=== PATIENT | male | born 1960 | race Caucasian/White ===

== ENCOUNTER 2018-11-27 09:50 | Outpatient (CLI) | payer OTHER ==
--- NOTE | 2018-11-27 20:21 | EKG ---
Test Reason : Blood Pressure : / mmHG Vent. Rate : 080 BPM Atrial Rate : 214 BPM P-R Int : 000 ms QRS Dur : 110 ms QT Int : 398 ms P-R-T Axes : 104 -38 045 degrees QTc Int : 459 ms Atrial flutter with variable A-V block Left axis deviation Pulmonary disease pattern Inferior infarct (cited on or before 07-OCT-2016) Abnormal ECG When compared with ECG of 07-OCT-2016 19:08, Significant changes have occurred Confirmed by DIOGENES MOREL, . SJames ([id number]) on 11/27/2018 8:21:17 PM Referred By: MYLENE Confirmed By:DR. Junior SHETTY MD
== END 2018-11-27 09:51 | disposition home or self-care (01) ==
LOC: EKG 09:50
PROVIDERS: ATTEND Psychiatry & Neurology Neurology
DX: Z02.71 Encounter for disability determination (principal); I50.9 Heart failure, unspecified
CPT/HCPCS: 93005; 93010

== ENCOUNTER 2020-08-28 14:14 | Inpatient (IN) | payer OTHER, SELFPAY ==
[2020-08-28 15:03] LABS: #Basophils 0.1 thou/uL (0.0-0.2); #Eosinphils 0.5 thou/uL (0.0-0.7); #Lymphocytes 3.4 thou/uL (1.20-3.40); #Monocytes 0.7 thou/uL (0.11-0.59); #Neutrophils 10.8 thou/uL (1.40-6.50); %Basophils 0.8 % (0.0-1.0); %Eosinophils 3.1 % (0.0-10.0); %Lymphocytes 21.6 % (21.0-51.0); %Monocytes 4.6 % (0.0-10.0); %Neutrophils 69.8 % (42.0-75.0); Hemoglobin 17.4 g/dL (14.0-18.0); Mean Corpuscular HGB CONC 33.1 g/dL (32.0-36.0); Mean Corpuscular Hemoglobin 32.7 pg (27.0-31.0); Mean Corpuscular Volume 98.6 fL (78.0-98.0); Mean Platelet Volume 8.2 fL (7.4-10.4); Platelet Count 234 thou/uL (130-400); RBC Distribution Width 12.8 % (11.5-14.5); Red Blood Cell (RBC) Count 5.31 mill/uL (4.70-6.10); White Blood Cell (WBC) Count 15.5 thou/uL (4.8-10.8)
[2020-08-28] MEDS ORDERED: Lisinopril 10 MG TAB ONE (15:15)
[2020-08-28 15:36] LABS: ALT (SGPT) 16 U/L (8-55); AST (SGOT) 15 U/L (5-34); Alkaline Phosphatase 116 U/L (40-110); Anion Gap 14 mmol/L (10-20); BUN (Urea Nitrogen) 11 mg/dL (8.4-25.7); Bilirubin, Total 0.8 mg/dL (0.2-1.2); CK (CPK) 49 U/L (30-200); Calc. Creatinine Clearance 0 mL/min (70-130); Calcium 9.2 mg/dL (7.8-10.44); Carbon Dioxide 23 mmol/L (22-29); Chloride 101 mmol/L (98-107); Estimated GFR-MDRD 85; Globulin 3.5 g/dL (2.4-3.5); Glucose 145 mg/dL (70-105); Lipase 9 U/L (8-78); Potassium 4.8 mmol/L (3.5-5.1); Protein, Total 7.5 g/dL (6.0-8.3); Sodium 133 mmol/L (136-145)
[2020-08-28 15:57] LABS: CKMB 2.1 ng/mL (0-6.6)
--- NOTE | 2020-08-28 16:24 | RAD ---
XR Chest 1 View Portable History: Chest pain Comparison: Radiograph 2017 Findings: Heart size is markedly enlarged. Mild pulmonary venous congestion. No pneumothorax. Trace e ffusions. No acute osseous abnormality. Impression: Mild decompensated congestive heart failure.
[2020-08-28] MEDS ORDERED: Acetaminophen 325 MG TAB PO PRN (18:00)
[2020-08-28] MEDS ORDERED: Ondansetron ODT 4 MG TAB SL PRN (18:00)
[2020-08-28] MEDS ORDERED: Ondansetron PF 4 MG/2 ML Vial IVP PRN (18:00)
--- NOTE | 2020-08-28 18:08 | PDOC.HHP ---
Hospitalist HPI - History of Present Illness Dyspnea History of Present Illness: This is a 59-year-old male patient with a history of atrial fibrillation on apixaban, hypertension, osteoarthritis who presents with worsening shortness of breath and weakness for the past 3 to 4 days. He has a history of A. fib for which he is on anticoagulation and amiodarone and has been following up with Dr. Burroughs. He notes having fallen about 4 days ago while working and since then has had back pain which has progressively improved. However though he complains of worsening shortness of breath, easy fatigability with orthopnea and paroxysmal nocturnal dyspnea. He also has worsening swelling of his feet intermittently. He admits to some mild chest discomfort. Also has intermittent wheezing and weight gain and intermittent palpitation. Given worsening symptoms he presented today for further evaluation. ELDER done in 2016 prior to cardioversion for A. fib showed EF of 60 to 65%. Left atrium was dilated he has been on diltiazem, amiodarone and apixaban. 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 fib. At presentation his blood pressure was 153/73, heart rate 67, respiratory 20, saturation 94% on room air, he was afebrile. His labs showed WBC 15.5, hemoglobin 17.4 and platelets 234. Chemistry shows mild hyponatremia of 133, potassium 4.8 and troponin initially elevated at 0.033. Imaging was consistent with mild decompensated congestive heart failure. EKG showed atrial fibrillation. Hospitalist ROS - Review of Systems Constitutional: denies: fever, chills, weakness Respiratory: reports: cough, shortness of breath, SOB with excertion, pleuritic pain. denies: hemoptysis Cardiovascular: reports: chest pain, palpitations, orthopnea, paroxysmal noc. dyspnea, edema Gastrointestinal: denies: nausea, vomiting, abdominal pain Genitourinary: denies: dysuria, frequency, incontinence Neurological: denies: weakness, numbness, incoordination, change in speech - Medication Medications: Can refer to ambulatory Hospitalist History - Past Medical History Cardiac: reports: AFIB, HTN Musculoskeletal: reports: Osteoarthritis - Past Surgical History Other Surgical History: None of significance. - Family History Other Family History: None of significance - Social History Smoking Status: Current every day smoker Alcohol: reports: Occassional Living Situation: With Family - Exam General Appearance: awake alert General - other findings: In mild respiratory distress Eye: PERRL, anicteric sclera Heart: no murmur, no gallops, no rubs, normal peripheral pulses Respiratory - other findings: Bilateral basal crackles Extremities: no cyanosis, no clubbing, 1+ LE edema Neurological: cranial nerve grossly intact, normal sensation to touch, no weakness Musculoskeletal: normal tone, no muscle wasting Psychiatric: normal affect, normal behavior, A&O x 3 Hospitalist Results - Labs Result Diagrams: 08/28/20 14:46 08/28/20 14:46 Lab results: WBC 15.5 thou/uL (4.8-10.8) H 08/28/20 14:46 Hgb 17.4 g/dL (14.0-18.0) 08/28/20 14:46 Hct 52.4 % (42.0-52.0) H 08/28/20 14:46 MCV 98.6 fL (78.0-98.0) H 08/28/20 14:46 Plt Count 234 thou/uL (130-400) 08/28/20 14:46 Neutrophils % 69.8 % (42.0-75.0) 08/28/20 14:46 Sodium 133 mmol/L (136-145) L 08/28/20 14:46 Potassium 4.8 mmol/L (3.5-5.1) 08/28/20 14:46 Chloride 101 mmol/L (98-107) 08/28/20 14:46 Carbon Dioxide 23 mmol/L (22-29) 08/28/20 14:46 BUN 11 mg/dL (8.4-25.7) 08/28/20 14:46 Creatinine 0.91 mg/dL (0.7-1.3) 08/28/20 14:46 Glucose 145 mg/dL (70-105) H 08/28/20 14:46 Calcium 9.2 mg/dL (7.8-10.44) 08/28/20 14:46 Total Bilirubin 0.8 mg/dL (0.2-1.2) 08/28/20 14:46 AST 15 U/L (5-34) 08/28/20 14:46 ALT 16 U/L (8-55) 10/29/20 14:46 Alkaline Phosphatase 116 U/L (40-110) H 08/28/20 14:46 Creatine Kinase 49 U/L (30-200) 08/28/20 14:46 CK-MB (CK-2) 2.1 ng/mL (0-6.6) 08/28/20 14:46 Troponin I 0.033 ng/mL (< 0.028) H 08/28/20 14:46 Serum Total Protein 7.5 g/dL (6.0-8.3) 08/28/20 14:46 Albumin 4.0 g/dL (3.5-5.0) 08/28/20 14:46 Lipase 9 U/L (8-78) 08/28/20 14:46 Hospitalist H&P A/P - Plan Plan: This is a 59-year-old male patient with a history of A. fib on anticoagulation, hypertension and chronic osteoarthritis who presents with worsening shortness of breath palpitations for the past 3 days. He has been admitted from possible onset heart failure New onset acute heart failure Shortness of breath, orthopnea PND and pedal swelling in the setting of A. fib. Admit to telemetry Start IV Lasix Monitor electrolytes Daily weights Low-salt intake Echocardiogram in a.m. Consult cardiology. Atrial fibrillation Continue anticoagulation Also continue home amiodarone Discontinued diltiazem on account of ongoing heart failure To start beta-blockers once acute events observe Cardiology consult in a.m. Type II NSTEMI Troponin elevated at 0.033 Trend troponin Already anticoagulated Falls Unclear etiology possibly cardiac Orthostatic blood pressures Monitor on telemetry Echocardiogram Osteoarthritis of right knee. Try topical diclofenac Consider steroids if pain persists We will monitor for now. Leukocytosis Unclear etiology Repeat BMP in a.m. DVT prophylaxistherapeutic on apixaban CODE STATUSfull code [email or web address]
[2020-08-28] MEDS ORDERED: Electrolyte Replacement Protoc 1 EACH EACH FS SCH (18:15)
[2020-08-28] MEDS ORDERED: Electrolyte Replacement Protocol FS PRN (18:15)
[2020-08-28] MEDS ORDERED: Albuterol 200 PUFF (6.7GM INHALER) INH PRN (18:16)
[2020-08-28] MEDS ORDERED: Furosemide 40 MG/4 ML VIAL SLOW IVP SCH (19:00)
[2020-08-28 19:19] LABS: Troponin I 0.037 ng/mL (< 0.028)
[2020-08-28] MEDS: Albuterol 200 PUFF (6.7GM INHALER) INH SCH ×2 (19:43→22:37)
[2020-08-28] MEDS: Apixaban 5 MG TAB PO SCH (20:19)
[2020-08-28] MEDS: Amiodarone 200 MG TAB PO SCH (20:20)
[2020-08-28] MEDS: Nicotine 21 MG PATCH TD SCH (20:24)
[2020-08-28 21:50] LABS: Troponin I 0.023 ng/mL (< 0.028)
[2020-08-28 21:58] VITALS: BMI 43.0
[2020-08-29] MEDS: Albuterol 200 PUFF (6.7GM INHALER) INH SCH ×5 (01:39→19:56)
[2020-08-29 04:36] LABS: #Basophils 0.1 thou/uL (0.0-0.2); #Eosinphils 0.4 thou/uL (0.0-0.7); #Neutrophils 9.2 thou/uL (1.40-6.50); %Basophils 0.6 % (0.0-1.0); %Eosinophils 3.1 % (0.0-10.0); %Lymphocytes 21.8 % (21.0-51.0); %Monocytes 7.1 % (0.0-10.0); %Neutrophils 67.4 % (42.0-75.0); Hemoglobin 16.4 g/dL (14.0-18.0); Mean Corpuscular HGB CONC 33.7 g/dL (32.0-36.0); Mean Corpuscular Hemoglobin 33.1 pg (27.0-31.0); Mean Corpuscular Volume 98.2 fL (78.0-98.0); Platelet Count 198 thou/uL (130-400); RBC Distribution Width 12.6 % (11.5-14.5); Red Blood Cell (RBC) Count 4.96 mill/uL (4.70-6.10); White Blood Cell (WBC) Count 13.6 thou/uL (4.8-10.8)
[2020-08-29 04:58] LABS: ALT (SGPT) 16 U/L (8-55); AST (SGOT) 12 U/L (5-34); Albumin 3.6 g/dL (3.5-5.0); Alkaline Phosphatase 108 U/L (40-110); Anion Gap 11 mmol/L (10-20); BUN (Urea Nitrogen) 13 mg/dL (8.4-25.7); Bilirubin, Total 0.7 mg/dL (0.2-1.2); Calc. Creatinine Clearance 165 mL/min (70-130); Calcium 9.2 mg/dL (7.8-10.44); Carbon Dioxide 28 mmol/L (22-29); Chloride 101 mmol/L (98-107); Estimated GFR-MDRD 79; Globulin 3.4 g/dL (2.4-3.5); Glucose 101 mg/dL (70-105); Potassium 3.9 mmol/L (3.5-5.1); Sodium 136 mmol/L (136-145)
[2020-08-29] MEDS ORDERED: Enoxaparin Sodium 40 MG/0.4 ML SYRINGE SC SCH (09:00)
[2020-08-29] MEDS ORDERED: Nicotine 21 MG PATCH TD SCH (09:00)
[2020-08-29] MEDS: Furosemide 40 MG/4 ML VIAL SLOW IVP SCH (09:49)
[2020-08-29] MEDS: Aspirin 81 mg Enteric Coated Tablet PO SCH (09:49)
[2020-08-29] MEDS: Amiodarone 200 MG TAB PO SCH (09:54)
[2020-08-29] MEDS: Apixaban 5 MG TAB PO SCH ×2 (09:55→20:04)
[2020-08-29] MEDS ORDERED: Magnesium 2 GM/50 ML 2 GM in Premix Bag 1 BAG IVPB SCH (10:15)
--- NOTE | 2020-08-29 10:57 | CON ---
DATE OF CONSULTATION: HISTORY OF PRESENT ILLNESS: The patient is a 59-year-old gentleman with a long history of atrial fibrillation, who presents for evaluation of dyspnea. The patient has was seen in 2016, he underwent electrocardioversion. The patient was treated with amiodarone for several years.He was taken off this medication a year ago. The patient states he subsequently has had several syncopal episodes where he suddenly loses consciousness. The patient four days ago had an episode once again where he felt palpitations and suddenly lost consciousness. The patient has subsequently noted that he has had increased dyspnea at night. The patient reports that it was often associated with rapid palpitations. The patient denies having any PND or orthopnea. PAST MEDICAL HISTORY: 1. Atrial fibrillation. 2. Diastolic heart failure. 3. COPD. 4. Osteoarthritis. PAST SURGICAL HISTORY: None. SOCIAL HISTORY: Long history of tobacco abuse, recently quit a few weeks ago. FAMILY HISTORY: Positive family history of coronary artery disease. ALLERGIES: NO KNOWN DRUG ALLERGIES. MEDICATIONS: On admission, include: 1. Metoprolol 50 b.i.d. 2. Eliquis 5 b.i.d. 3. Aspirin 81 daily. 4. Lisinopril 20 daily. 5. Diltiazem 180 daily. REVIEW OF SYSTEMS: Ten-point system otherwise unremarkable. No easy bruising or bleeding. ALLERGIES: NO KNOWN DRUG ALLERGIES. PHYSICAL EXAMINATION: GENERAL: Morbidly obese gentleman, in no acute distress. VITAL SIGNS: Blood pressure 140/65. NECK: No jugular venous distention. LUNGS: Clear to auscultation. HEART: Irregular rate and rhythm. Normal S1, S2. No murmurs. ABDOMEN: Distended. EXTREMITIES: Show mild bilateral edema. VASCULAR: Radial pulses 2+. LABORATORY DATA: Sodium 136, potassium 3.9, chloride 101, bicarbonate 28, BUN 13, creatinine 0.97, and glucose 101. White blood cell count 13.6,hematocrit 48.7, and platelets were 198. EKG atrial fibrillation with Q-wave, suggestive of possible previous inferior infarct. IMPRESSION: 1. Atrial fibrillation, flutter. 2. Syncope. 3. Congestive heart failure, probably secondary to diastolic dysfunction. 4. Morbid obesity. 5. History of hypertriglyceridemia. 6. Tobacco abuse. This gentleman presents with a syncopal episode and rapid atrial fibrillation. We will obtain an EP consultation and would try to avoid amiodarone with the patient's young age. We will ask EP for further medical recommendation. We will check the patient's echocardiogram. We will follow this patient with you through his hospitalization. Job ID: [id number] SHARAD
[2020-08-29] MEDS ORDERED: Lidocaine 1% w/Epinephrine 1:100K 20 ML VIAL ONE (11:46)
--- NOTE | 2020-08-29 13:09 | OP ---
DATE OF PROCEDURE: 08/29/2020 PROCEDURE PERFORMED: Loop recorder implantation. REASON FOR PROCEDURE: 1. Recurrent syncope. 2. Persisting atrial fibrillation. DESCRIPTION OF PROCEDURE: The patient received no sedation. The left precordial area was prepped, draped, and anesthetized using subcutaneous lidocaine, and at 4th intercostal space area, incision was made with a [employer] standard tool kit. The [employer] LINQ recorder was inserted. The wound was closed with Dermabond. The patient tolerated the procedure well. No complications noted. CONCLUSION: Successful LINQ recorder placement. PLAN: Continue monitoring for recurrent syncope or arrhythmias. Job ID: [id number]
[2020-08-29 17:48] LABS: SARS-CoV-2 MS2 Positive; SARS-CoV-2 N Gene Negative; SARS-CoV-2 S Gene Negative; SARS-CoV-2 by NAA Not Detected (NotDetected); SARS-CoV-2 orf1ab Negative
[2020-08-29] MEDS: Nicotine 21 MG PATCH TD SCH (20:04)
--- NOTE | 2020-08-29 22:37 | PDOC.HOSPP ---
- Subjective Encounter Date: 08/29/20 Encounter Time: 10:00 Subjective: Patient was seen and examined in bed. He had diuresed overnight feels much better today. Shortness of breath improved. She denies any chest pain - Objective Vital Signs & Weight: Vital Signs (12 hours) Temp Pulse Resp BP Pulse Ox 08/29/20 19:10 97.9 F 97 18 151/67 H 94 L 08/29/20 15:23 98.3 F 85 16 154/67 H 96 08/29/20 11:25 98 F 88 18 140/92 H 92 L Weight Weight 317 lb 6 oz I&O: 08/28/20 08/29/20 08/30/20 06:59 06:59 06:59 Intake Total 1490 Output Total 3100 Balance -1610 Result Diagrams: 08/29/20 04:16 08/29/20 04:16 Hospitalist ROS - Medication Medications: Active Medications Generic Name Dose Route Start Last Admin Trade Name Freq PRN Reason Stop Dose Admin Albuterol Sulfate 2 puff 08/28/20 18:30 08/29/20 19:56 Albuterol 200 Puff (6.7gm Inhaler) INH 2 puff [id number] CARLO Administration Apixaban 5 mg 08/28/20 21:00 08/29/20 20:04 Apixaban 5 Mg Tab PO 5 mg BID CARLO Administration Aspirin 81 mg 08/29/20 09:00 08/29/20 09:49 Aspirin 81 Mg Enteric Coated Tablet PO 81 mg DAILY CARLO Administration Diltiazem HCl 180 mg 08/29/20 21:00 08/29/20 20:04 Diltiazem Hcl Cd 180 Mg Capsule PO 180 mg HS CARLO Administration Furosemide 40 mg 08/29/20 09:00 08/29/20 09:49 Furosemide 40 Mg/4 Ml Vial SLOW IVP 40 mg DAILY CARLO Administration Nicotine 21 mg 08/28/20 21:00 08/29/20 20:04 Nicotine 21 Mg Patch TD 21 mg HS CARLO Administration - Exam General Appearance: awake alert Eye: PERRL, anicteric sclera Heart: RRR, no murmur, no gallops, no rubs Respiratory: no wheezes, no rales, no ronchi Gastrointestinal: soft, non-tender, non-distended, normal bowel sounds Extremities: no cyanosis, no clubbing, no edema Neurological: cranial nerve grossly intact, no weakness Psychiatric: normal affect, A&O x 3 Hosp A/P - Plan 59-year-old male patient with a history of A. fib admitted on account of new onset heart failure of unclear etiology. Cardiology was consulted later if his consultation in loop recorder implantation today. New onset acute heart failure Cardiology evaluated today Electrophysiology evaluation as well with loop recorder implantation Echo could not evaluate adequately EF Continue diuresis Monitor electrolytes and weight Appreciate cardiology input Atrial fibrillation Rate controlled on diltiazem Continue apixaban Amiodarone currently discontinued Continue monitoring on telemetry Type II NSTEMI Troponin remains flat. Continue monitor Falls Unclear etiology possibly cardiac Orthostatic blood pressures Monitor on telemetry Echocardiogram Osteoarthritis of right knee. Try topical diclofenac Consider steroids if pain persists We will monitor for now. Leukocytosis Unclear etiology This is resolvingwe will continue monitoring. DVT prophylaxistherapeutic on apixaban CODE STATUSfull code [email or web address]
[2020-08-30] MEDS: Albuterol 200 PUFF (6.7GM INHALER) INH SCH ×7 (03:50→22:15)
[2020-08-30 04:57] LABS: #Basophils 0.1 thou/uL (0.0-0.2); #Eosinphils 0.5 thou/uL (0.0-0.7); #Lymphocytes 2.8 thou/uL (1.20-3.40); #Monocytes 0.9 thou/uL (0.11-0.59); #Neutrophils 6.8 thou/uL (1.40-6.50); %Basophils 0.7 % (0.0-1.0); %Eosinophils 4.4 % (0.0-10.0); %Lymphocytes 25.2 % (21.0-51.0); %Monocytes 7.8 % (0.0-10.0); Hemoglobin 16.2 g/dL (14.0-18.0); Mean Corpuscular HGB CONC 32.7 g/dL (32.0-36.0); Mean Corpuscular Hemoglobin 31.9 pg (27.0-31.0); Mean Corpuscular Volume 97.6 fL (78.0-98.0); Platelet Count 177 thou/uL (130-400); RBC Distribution Width 12.6 % (11.5-14.5); Red Blood Cell (RBC) Count 5.07 mill/uL (4.70-6.10)
[2020-08-30 05:19] LABS: Anion Gap 12 mmol/L (10-20); BUN (Urea Nitrogen) 15 mg/dL (8.4-25.7); Calc. Creatinine Clearance 154 mL/min (70-130); Carbon Dioxide 30 mmol/L (22-29); Chloride 99 mmol/L (98-107); Estimated GFR-MDRD 73; Glucose 90 mg/dL (70-105); Potassium 4.3 mmol/L (3.5-5.1); Sodium 137 mmol/L (136-145)
--- NOTE | 2020-08-30 07:26 | CON ---
DATE OF CONSULTATION: 08/29/2020 ADDITIONAL REFERRING PHYSICIAN: Also regular life sciences manager, Dr. Beau Higuera. HISTORY OF PRESENT ILLNESS: I am seeing Mr. Perera at our [facility] as an Electrophysiology medical economics consultant. His problems are; 1. Persisting atrial fibrillation. a. History of ELDER-guided cardioversion in 2016 and subsequent amiodarone therapy. b. Recurrent atrial flutter about a year ago prompting discontinuation of amiodarone. c. Current admission with a diastolic heart failure and atrial fibrillation with rapid ventricular rates. 2. CHADS-VASc score, diastolic heart failure and hypertension at 2 on Eliquis for oral anticoagulation. 3. History of COPD. 4. Obesity. ALLERGIES: NONE NOTED. MEDICATIONS: At home include; 1. Eliquis 5 mg twice a day. 2. Aspirin 81 mg daily. 3. Tramadol. 4. Lisinopril 20 mg daily. 5. Metoprolol tartrate 50 mg twice a day. 6. Diltiazem CD 180 mg daily. SUBJECTIVE: Mr. Perera was admitted overnight with dyspnea. He has noted progressive palpitations and for the last 3 to 4 days, he has some increased fatigability and also orthopnea and PND. He was not able to sleep the night. Admits of atypical chest pain, intermittent wheezing, and weight gain has been noted. In the ER, he was diagnosed with new onset of heart failure. His troponin levels were slightly elevated. Dr. Wood has evaluated the patient and I was consulted for further atrial fibrillation management. Currently, the patient is asymptomatic. Denies PND or orthopnea. No lower extremity edema. No fever, chills, or cough. He is being diuresed. REVIEW OF SYSTEMS: Rest of 12-point system, otherwise unremarkable. PAST MEDICAL HISTORY: As above. The patient had recurrent syncopal spells, last has happened about four days ago, but happens intermittently at least two or three times a year. The episode happened while he is walking and mostly happens when he is upright. He had never noticed lower blood pressures associated with this. SOCIAL HISTORY: The patient has an occasional use of alcohol and smokes daily. Denies drug use. FAMILY HISTORY: Not contributory. OBJECTIVE DATA: VITAL SIGNS: Blood pressure 140/92, heart rate 88, respirations 18, and temperature 98 degrees Fahrenheit. GENERAL: Alert and oriented man, with markedly elevated BMI, in no apparent distress and his weight is 317 pounds. NECK: Supple. Jugular veins difficult to visualize. CHEST: Coarse. No crackles. HEART: Sounds are irregularly irregular. S1 and S2 are variable. I do not hear murmur or gallop. ABDOMEN: Benign. Bowel sounds positive. EXTREMITIES: Lower extremities without edema, clubbing, or cyanosis. NEUROLOGIC: The patient is nonfocal. MUSCULOSKELETAL: Without joint swelling or deformity. SKIN: Without rash. DATABASE: EKG is reviewed, revealing atrial fibrillation, rates of 60 beats per minute, narrow QRS is seen. LABORATORY DATA: White cell count is 13.6, hemoglobin 16.4, and platelet count is 198. Sodium 136, potassium 3.9, BUN is 13, and creatinine 0.97. Troponin I 0.033, 0.037, and 0.023 consecutively. Initial BNP is 310. The chest x-ray from 08/28/2020 reveals mild decompensated CHF. Telemetry strips revealed just continued atrial fibrillation now with improving ventricular rate control. ASSESSMENT AND PLAN: 1. Mr. Perera is a 59-year-old man with prior history of atrial fibrillation at least for four years, who has been suppressed with amiodarone over number of years with more recently due to inefficacy that drug was stopped about a year ago. Now, he is presenting with progressive dyspnea and possible diastolic heart failure exacerbation. He is responding to diuretics, currently feeling better. Atrial fibrillation continues now with improving ventricular rate control. a. He also has syncopal spells, which so far are unexplained. The episodes are relatively infrequent, but one happened about four days ago. Blood pressure related syncope, but more likely arrhythmic syncope are very much a possibility. He might have benefit from further monitoring. b. We discussed these issues with him. During his syncope, I think a LINQ recorder placement would be warranted. This could monitor his relatively infrequent syncopes to rule out arrhythmic causes. Tachy and bradyarrhythmias are a possibility. Most likely due to atrial fibrillation, although lower chamber arrhythmias are less likely hence his preserved LVEF. 2. Atrial fibrillation. We discussed potential management options. He already failed amiodarone. At this point, could be considered for ablation therapy. He is well anticoagulated. I explained the procedure to him and we will make arrangements for it. See him back in the office for outpatient arrangements for possible ablation in future. 3. Morbid obesity. Weight loss is recommended. 4. History of chronic obstructive pulmonary disease and smoking. Smoking cessation recommended. 5. CHADS-VASc score of 2. Continue oral anticoagulation with Eliquis. No bleeding issues. Thank you for allowing me to participate in care of this patient. Job ID: [id number]
[2020-08-30] MEDS: Apixaban 5 MG TAB PO SCH ×2 (09:50→20:39)
[2020-08-30] MEDS: Furosemide 40 MG/4 ML VIAL SLOW IVP SCH (09:50)
[2020-08-30] MEDS: Aspirin 81 mg Enteric Coated Tablet PO SCH (09:50)
[2020-08-30] MEDS: Lisinopril 10 MG TAB PO SCH (09:50)
--- NOTE | 2020-08-30 14:05 | PDOC.HOSPP ---
- Subjective Encounter Date: 08/30/20 Encounter Time: 09:00 Subjective: Patient seen in follow-up for congestive heart failure. Reports feeling better. - Objective Vital Signs & Weight: Vital Signs (12 hours) Temp Pulse Resp BP BP Pulse Ox 08/30/20 11:10 97.5 F L 87 20 142/64 H 97 08/30/20 07:50 97.3 F L 77 17 139/63 94 L 08/30/20 04:39 97.4 F L 84 18 142/67 H 94 L Weight Weight 308 lb 8 oz I&O: 08/29/20 08/30/20 08/31/20 06:59 06:59 05:59 Intake Total 1490 240 Output Total 3100 1925 Balance -1610 -1685 Result Diagrams: 08/30/20 04:31 08/30/20 04:31 Additional Labs: Labs and MAR reviewed by me EKG Reviewed by me: Yes (Telemetry: Atrial fibrillation) Hospitalist ROS - Review of Systems Cardiovascular: denies: chest pain, palpitations, orthopnea, paroxysmal noc. dyspnea, edema, light headedness Gastrointestinal: denies: nausea, vomiting, abdominal pain, diarrhea, constipation, melena, hematochezia - Medication Medications: Active Medications Generic Name Dose Route Start Last Admin Trade Name Freq PRN Reason Stop Dose Admin Albuterol Sulfate 2 puff 08/28/20 18:30 08/30/20 11:20 Albuterol 200 Puff (6.7gm Inhaler) INH Not Given [id number] CARLO Apixaban 5 mg 08/28/20 21:00 08/30/20 09:50 Apixaban 5 Mg Tab PO 5 mg BID CARLO Administration Aspirin 81 mg 08/29/20 09:00 08/30/20 09:50 Aspirin 81 Mg Enteric Coated Tablet PO 81 mg DAILY CARLO Administration Diltiazem HCl 180 mg 08/29/20 21:00 08/29/20 20:04 Diltiazem Hcl Cd 180 Mg Capsule PO 180 mg HS CARLO Administration Furosemide 40 mg 08/29/20 09:00 08/30/20 09:50 Furosemide 40 Mg/4 Ml Vial SLOW IVP 40 mg DAILY CARLO Administration Lisinopril 10 mg 08/30/20 09:00 08/30/20 09:50 Lisinopril 10 Mg Tab PO 10 mg DAILY CARLO Administration Nicotine 21 mg 08/28/20 21:00 08/29/20 20:04 Nicotine 21 Mg Patch TD 21 mg HS CARLO Administration - Exam General - other findings: Morbid obesity Eye: anicteric sclera ENT: normocephalic atraumatic Neck: supple Heart: irregular Respiratory: CTAB Gastrointestinal: soft Extremities: no cyanosis Skin: no rashes Psychiatric: normal affect, normal behavior Hosp A/P - Plan -Assessment/plan New onset acute heart failure Continue IV furosemide. Monitor electrolytes and weight Cardiology service following. Atrial fibrillation Rate controlled on diltiazem Patient is also on apixaban Type II NSTEMI Stable, continue to monitor. Falls Etiology is unclear, continue to monitor on telemetry. Osteoarthritis of right knee. Stable Leukocytosis Improved.
[2020-08-30] MEDS: Nicotine 21 MG PATCH TD SCH (20:39)
[2020-08-31] MEDS: Albuterol 200 PUFF (6.7GM INHALER) INH SCH ×6 (02:06→23:11)
[2020-08-31] MEDS: Apixaban 5 MG TAB PO SCH ×2 (08:44→21:14)
[2020-08-31] MEDS: Aspirin 81 mg Enteric Coated Tablet PO SCH (08:44)
[2020-08-31] MEDS: Lisinopril 10 MG TAB PO SCH (08:44)
[2020-08-31] MEDS: Furosemide 40 MG/4 ML VIAL SLOW IVP SCH (08:44)
[2020-08-31] MEDS ORDERED: Digoxin 0.5 MG/2 ML AMP SLOW IVP SCH ×2 (10:15→12:00)
--- NOTE | 2020-08-31 17:40 | PDOC.HOSPP ---
- Subjective Encounter Date: 08/31/20 Encounter Time: 12:00 Subjective: Patient seen for follow-up regarding congestive heart failure exacerbation. He denies fevers or chills. - Objective Vital Signs & Weight: Vital Signs (12 hours) Temp Pulse Pulse Pulse Resp BP BP 08/31/20 15:35 98.3 F 100 16 08/31/20 15:26 133 H 106 H 197/80 H 167/73 H 08/31/20 12:08 97 08/31/20 12:05 97.8 F 104 H 18 08/31/20 10:35 97 08/31/20 07:15 97.3 F L 97 16 BP BP Pulse Ox Pulse Ox Pulse Ox 08/31/20 15:35 153/72 H 96 08/31/20 15:26 94 L 94 L 08/31/20 12:08 08/31/20 12:05 134/63 96 08/31/20 10:35 08/31/20 07:15 149/70 H 96 Weight Weight 311 lb I&O: 08/30/20 08/31/20 09/01/20 07:59 06:59 06:59 Intake Total Output Total Balance Result Diagrams: 08/30/20 04:31 08/30/20 04:31 Additional Labs: I reviewed patient's labs and MAR EKG Reviewed by me: Yes (Telemetry: Atrial fibrillation) Hospitalist ROS - Review of Systems Cardiovascular: denies: chest pain, palpitations, orthopnea, paroxysmal noc. dyspnea, edema, light headedness Gastrointestinal: denies: nausea, vomiting, abdominal pain, diarrhea, constipation, melena, hematochezia - Medication Medications: Active Medications Generic Name Dose Route Start Last Admin Trade Name Freq PRN Reason Stop Dose Admin Albuterol Sulfate 2 puff 08/28/20 18:30 08/31/20 14:36 Albuterol 200 Puff (6.7gm Inhaler) INH Not Given [id number] CARLO Apixaban 5 mg 08/28/20 21:00 08/31/20 08:44 Apixaban 5 Mg Tab PO 5 mg BID CARLO Administration Aspirin 81 mg 08/29/20 09:00 08/31/20 08:44 Aspirin 81 Mg Enteric Coated Tablet PO 81 mg DAILY CARLO Administration Diltiazem HCl 180 mg 08/29/20 21:00 08/30/20 20:39 Diltiazem Hcl Cd 180 Mg Capsule PO 180 mg HS CARLO Administration Furosemide 40 mg 08/29/20 09:00 08/31/20 08:44 Furosemide 40 Mg/4 Ml Vial SLOW IVP 40 mg DAILY CARLO Administration Lisinopril 10 mg 08/30/20 09:00 08/31/20 08:44 Lisinopril 10 Mg Tab PO 10 mg DAILY CARLO Administration Nicotine 21 mg 08/28/20 21:00 08/30/20 20:39 Nicotine 21 Mg Patch TD 21 mg HS CARLO Administration - Exam General Appearance: awake alert Eye: anicteric sclera ENT: moist mucosa Neck: supple Heart: irregular Respiratory: CTAB Gastrointestinal: soft, non-tender Skin: no rashes Psychiatric: normal affect, normal behavior Hosp A/P - Plan -Assessment/plan New onset acute heart failure Continue IV furosemide. Patient is clinically improving. Atrial fibrillation Patient had episode of atrial fibrillation with rapid ventricular response today, received digoxin with improvement in heart rate. Continue diltiazem Continue apixaban Type II NSTEMI Stable, continue to monitor. Falls Etiology is unclear, continue to monitor on telemetry. Osteoarthritis of right knee. Stable Leukocytosis Improved.
[2020-08-31] MEDS: Nicotine 21 MG PATCH TD SCH (21:13)
[2020-09-01] MEDS: Albuterol 200 PUFF (6.7GM INHALER) INH SCH ×6 (04:11→22:58)
[2020-09-01] MEDS: Digoxin 0.25 MG TAB PO SCH (09:33)
[2020-09-01] MEDS: Apixaban 5 MG TAB PO SCH ×2 (09:33→22:55)
[2020-09-01] MEDS: Furosemide 40 MG/4 ML VIAL SLOW IVP SCH (09:33)
[2020-09-01] MEDS: Aspirin 81 mg Enteric Coated Tablet PO SCH (09:33)
[2020-09-01] MEDS: Lisinopril 10 MG TAB PO SCH (09:33)
--- NOTE | 2020-09-01 15:21 | ULT ---
Exam: Left lower extremity venous ultrasound with Doppler HISTORY: Left upper extremity swelling. COMPARISON: none TECHNIQUE: A sterile, color flow, Doppler imaging and spectral wave muscle the left upper extremity v enous system FINDINGS: There is patency in the internal jugular vein There is patency of the subclavian vein Compressibility and flow in the axillary vein, brachial vein. There is flow in the ulnar vein, basili c vein and radial vein. There is thrombus formation in the cephalic vein at the level of the antecubital fossa. IMPRESSION: Thrombus involving the cephalic vein at the antecubital fossa.
--- NOTE | 2020-09-01 16:01 | PDOC.EP ---
- Subjective Date: 09/01/20 Time: 15:59 Interval History: Follow up for atrial fibrillation. He has symptomatic palpitations with any activity despite increasing rate control. No symptoms at rest. - Review of Systems Constitutional: denies: chills, fever, malaise, sweats, weakness Respiratory: reports: shortness of breath. denies: cough, pleuritic pain, sputum, wheezing Cardiology: reports: heart racing, palpitations. denies: chest pain, edema, light headedness, passing out Gastrointestinal: denies: abdominal pain, constipation, nausea, vomitting Musculoskeletal: denies: unstable gait, falls, leg pain, foot pain - Objective Allergies/Adverse Reactions: Allergies Allergy/AdvReac Type Severity Reaction Status Date / Time No Known Drug Allergies Allergy Verified 08/28/20 22:05 Current Medications Albuterol Sulfate (Albuterol 200 Puff (6.7gm Inhaler)) 2 puff INH [id number] [facility] Last Admin: 09/01/20 14:53 Dose: Not Given Documented by: Albuterol Sulfate (Albuterol 200 Puff (6.7gm Inhaler)) 2 puff INH Q4H PRN PRN Reason: SOB &/or Wheezing Apixaban (Apixaban 5 Mg Tab) 5 mg PO BID [facility] Last Admin: 09/01/20 09:33 Dose: 5 mg Documented by: Aspirin (Aspirin 81 Mg Enteric Coated Tablet) 81 mg PO DAILY [facility] Last Admin: 09/01/20 09:33 Dose: 81 mg Documented by: Digoxin (Digoxin 0.25 Mg Tab) 0.25 mg PO QAM [facility] Last Admin: 09/01/20 09:33 Dose: 0.25 mg Documented by: Diltiazem HCl (Diltiazem Hcl Cd 180 Mg Capsule) 180 mg PO BID [facility] Furosemide (Furosemide 40 Mg/4 Ml Vial) 40 mg SLOW IVP DAILY [facility] Last Admin: 09/01/20 09:33 Dose: 40 mg Documented by: Lisinopril (Lisinopril 10 Mg Tab) 10 mg PO DAILY [facility] Last Admin: 09/01/20 09:33 Dose: 10 mg Documented by: Miscellaneous Medication (Electrolyte Replacement Protocol) 0 each FS ASDIR PRN; Protocol PRN Reason: ELECTROLYTE REPLACEMENT Nicotine (Nicotine 21 Mg Patch) 21 mg TD HS [facility] Last Admin: 08/31/20 21:13 Dose: 21 mg Documented by: Vital Signs & Weight: Vital Signs Temp Pulse Resp BP Pulse Ox 09/01/20 11:30 97.9 F 108 H 18 136/65 94 L 09/01/20 09:33 107 H 09/01/20 08:00 96 09/01/20 07:25 97.5 F L 107 H 16 145/66 H 96 09/01/20 04:17 97.5 F L 108 H 20 142/65 H 95 Weight 305 lb 5 oz I/O: I/O 08/31/20 09/01/20 09/02/20 06:59 06:59 06:59 Intake Total 1350 Output Total 1475 Balance -125 - Quality Measures CV meds: Eliquis: Yes - Physical Exam General: alert & oriented x3, appears well, no apparent distress, speech clear, affect appropriate HEENT: mucus membranes moist, normocephaly Neck: supple neck, midline trachea, no JVD/HJR, no masses, no bruit, no lymphadenopathy, no thromegaly Cardiology: irregularly irregular, tachycardia Lungs: clear to auscultation, no wheeze, rales, rhonchi, decreased breath sounds Neurology: cranial nerve 2-12 intact, grossly intact, no lateralizing findings Abdomen: unremarkable, active bowel sounds, no pulsations/bruits Extremities: dry, strong pulses, warm - Chadsvasc Risk factors Congestive heart failure: 1 Hypertension: 1 Risk Score: 2 - Labs Result Diagrams: 08/30/20 04:31 08/30/20 04:31 - EKG Interpretation EKG Method: Telemetry EKG shows: Atrial fibrillation - Assessment/Plan Assessment/Plan: 1. Persisting atrial fibrillation. a. History of ELDER-guided cardioversion in 2016 and subsequent amiodarone therapy. b. Recurrent atrial flutter about a year ago prompting discontinuation of amiodarone. c. Current admission with a diastolic heart failure and atrial fibrillation with rapid ventricular rates. 2. CHADS-VASc score,2 diastolic heart failure and hypertension on Eliquis for oral anticoagulation. 3. History of COPD. 4. Obesity. Rate control is adequate at rest but RVR of 150-180bpm occurs with any activity and he is symptomatic. RVR persists despite increasing doses rate control. Discussed ablation option to manage his persistent AFib, previously refractory to amiodarone. He is aware of the risk for bleeding, stroke, atrio-esophageal fistula, tamponade/ effusion, and arrhythmia recurrence, and wishes to proceed this hospitalization, schedule permitting. He reports no missed doses of eliquis for the past 30 days. Lifestyle modification is necessary to help the chances of maintaining SR: weight loss, managing HTN, and sleep study/cpap if indicated. He is high risk for ENRIQUE and should have an outpatient sleep study. Continue rate control and eliquis. Plan to hold eliquis Tuesday AM before PVAI
[2020-09-01] MEDS: Acetaminophen 650 MG/20.3 ML UDCUP PO PRN (18:11)
--- NOTE | 2020-09-01 18:50 | PDOC.HOSPP ---
- Subjective Encounter Date: 09/01/20 Encounter Time: 12:00 Subjective: Patient seen for follow-up regarding congestive heart failure exacerbation. He reports feeling better. He reports left arm swelling. - Objective Vital Signs & Weight: Vital Signs (12 hours) Temp Pulse Resp BP Pulse Ox 09/01/20 15:45 97.8 F 101 H 16 140/65 96 09/01/20 11:30 97.9 F 108 H 18 136/65 94 L 09/01/20 09:33 107 H 09/01/20 08:00 96 09/01/20 07:25 97.5 F L 107 H 16 145/66 H 96 Weight Weight 305 lb 5 oz I&O: 08/31/20 09/01/20 09/02/20 06:59 06:59 06:59 Intake Total 1350 Output Total 1475 Balance -125 Result Diagrams: 08/30/20 04:31 08/30/20 04:31 Additional Labs: Labs and MAR reviewed by me EKG Reviewed by me: Yes (Telemetry: A. fib with RVR) Hospitalist ROS - Review of Systems Cardiovascular: denies: chest pain, palpitations, orthopnea, paroxysmal noc. dyspnea, edema, light headedness Gastrointestinal: denies: nausea, vomiting, abdominal pain, diarrhea, constipation, melena, hematochezia Musculoskeletal: reports: other (Left arm swelling) - Medication Medications: Active Medications Generic Name Dose Route Start Last Admin Trade Name Freq PRN Reason Stop Dose Admin Acetaminophen 650 mg 09/01/20 17:37 09/01/20 18:11 Acetaminophen 650 Mg/20.3 Ml Udcup PO 650 mg Q6H PRN Administration pain Albuterol Sulfate 2 puff 08/28/20 18:30 09/01/20 18:12 Albuterol 200 Puff (6.7gm Inhaler) INH Not Given [id number] CARLO Apixaban 5 mg 08/28/20 21:00 09/01/20 09:33 Apixaban 5 Mg Tab PO 5 mg BID [facility] Administration Aspirin 81 mg 08/29/20 09:00 09/01/20 09:33 Aspirin 81 Mg Enteric Coated Tablet PO 81 mg DAILY [facility] Administration Digoxin 0.25 mg 09/01/20 09:00 09/01/20 09:33 Digoxin 0.25 Mg Tab PO 0.25 mg QAM [facility] Administration Furosemide 40 mg 08/29/20 09:00 09/01/20 09:33 Furosemide 40 Mg/4 Ml Vial SLOW IVP 40 mg DAILY [facility] Administration Lisinopril 10 mg 08/30/20 09:00 09/01/20 09:33 Lisinopril 10 Mg Tab PO 10 mg DAILY [facility] Administration Nicotine 21 mg 08/28/20 21:00 08/31/20 21:13 Nicotine 21 Mg Patch TD 21 mg HS [facility]LO Administration - Exam General - other findings: Morbid obesity Eye: anicteric sclera ENT: no oropharyngeal lesions Neck: supple Heart: no rubs, irregular Respiratory: CTAB Gastrointestinal: soft, non-tender Extremities - other findings: Left arm swelling Skin: no rashes Psychiatric: normal affect, normal behavior Hosp A/P - Plan -Assessment/plan New onset acute heart failure Niccoli improving with IV furosemide. Atrial fibrillation Continue diltiazem, apixaban and digoxin Type II NSTEMI Stable, continue to monitor. Falls Cardiac rehab following. Osteoarthritis of right knee. Stable -Morbid obesity Stable. Check a.m. labs..
[2020-09-01] MEDS: Nicotine 21 MG PATCH TD SCH (22:54)
[2020-09-02] MEDS: Albuterol 200 PUFF (6.7GM INHALER) INH SCH ×6 (05:28→23:35)
[2020-09-02] MEDS: Digoxin 0.25 MG TAB PO SCH (08:24)
[2020-09-02] MEDS: Aspirin 81 mg Enteric Coated Tablet PO SCH (08:24)
[2020-09-02] MEDS: Apixaban 5 MG TAB PO SCH ×2 (08:24→20:53)
[2020-09-02] MEDS: Furosemide 40 MG/4 ML VIAL SLOW IVP SCH (08:25)
[2020-09-02] MEDS: Lisinopril 10 MG TAB PO SCH (08:25)
[2020-09-02 09:05] LABS: #Basophils 0.1 thou/uL (0.0-0.2); #Eosinphils 0.6 thou/uL (0.0-0.7); #Lymphocytes 2.8 thou/uL (1.20-3.40); #Monocytes 1.2 thou/uL (0.11-0.59); #Neutrophils 6.3 thou/uL (1.40-6.50); %Basophils 0.7 % (0.0-1.0); %Eosinophils 5.9 % (0.0-10.0); %Lymphocytes 25.5 % (21.0-51.0); %Monocytes 11.1 % (0.0-10.0); %Neutrophils 56.9 % (42.0-75.0); Hemoglobin 17.9 g/dL (14.0-18.0); Mean Corpuscular Hemoglobin 33.3 pg (27.0-31.0); Platelet Count 202 thou/uL (130-400); RBC Distribution Width 12.8 % (11.5-14.5); Red Blood Cell (RBC) Count 5.36 mill/uL (4.70-6.10); White Blood Cell (WBC) Count 11.1 thou/uL (4.8-10.8)
--- NOTE | 2020-09-02 09:11 | PDOC.EP ---
- Subjective Date: 09/02/20 Time: 09:09 Interval History: Feels fair this morning. No significant events overnight. He continues to endorse palpitations and heart racing with significant shortness of breath with minimal activity. He is eager for his ablation tomorrow - Review of Systems Constitutional: denies: chills, fever, malaise, sweats, weakness Respiratory: reports: shortness of breath. denies: cough, dry, sputum, wheezing Cardiology: reports: heart racing, palpitations. denies: chest pain, edema, light headedness, passing out Gastrointestinal: denies: abdominal pain, constipation, nausea, vomitting Musculoskeletal: denies: unstable gait, falls, leg pain, foot pain - Objective Allergies/Adverse Reactions: Allergies Allergy/AdvReac Type Severity Reaction Status Date / Time No Known Drug Allergies Allergy Verified 08/28/20 22:05 Current Medications Acetaminophen (Acetaminophen 650 Mg/20.3 Ml Udcup) 650 mg PO Q6H PRN PRN Reason: pain Last Admin: 09/01/20 18:11 Dose: 650 mg Documented by: Albuterol Sulfate (Albuterol 200 Puff (6.7gm Inhaler)) 2 puff INH [id number] [facility] Last Admin: 09/02/20 06:53 Dose: 2 puff Documented by: Albuterol Sulfate (Albuterol 200 Puff (6.7gm Inhaler)) 2 puff INH Q4H PRN PRN Reason: SOB &/or Wheezing Apixaban (Apixaban 5 Mg Tab) 5 mg PO BID [facility] Last Admin: 09/02/20 08:24 Dose: 5 mg Documented by: Aspirin (Aspirin 81 Mg Enteric Coated Tablet) 81 mg PO DAILY [facility] Last Admin: 09/02/20 08:24 Dose: 81 mg Documented by: Digoxin (Digoxin 0.25 Mg Tab) 0.25 mg PO QAM [facility] Last Admin: 09/02/20 08:24 Dose: 0.25 mg Documented by: Diltiazem HCl (Diltiazem Hcl Cd 180 Mg Capsule) 180 mg PO BID [facility] Last Admin: 09/02/20 08:28 Dose: 180 mg Documented by: Furosemide (Furosemide 40 Mg/4 Ml Vial) 40 mg SLOW IVP DAILY [facility] Last Admin: 09/02/20 08:25 Dose: 40 mg Documented by: Lisinopril (Lisinopril 10 Mg Tab) 10 mg PO DAILY [facility] Last Admin: 09/02/20 08:25 Dose: 10 mg Documented by: Miscellaneous Medication (Electrolyte Replacement Protocol) 0 each FS ASDIR PRN; Protocol PRN Reason: ELECTROLYTE REPLACEMENT Nicotine (Nicotine 21 Mg Patch) 21 mg TD HS [facility] Last Admin: 09/01/20 22:54 Dose: 21 mg Documented by: Vital Signs & Weight: Vital Signs Temp Pulse Resp BP Pulse Ox 09/02/20 08:17 97.5 F L 80 20 139/63 95 09/02/20 03:25 98.1 F 83 18 163/70 H 99 09/02/20 00:00 75 18 156/65 H Weight 306 lb 9 oz I/O: I/O 09/01/20 09/02/20 09/03/20 06:59 06:59 06:59 Intake Total 1350 1250 Output Total 1475 1625 Balance -125 -375 - Quality Measures Condition: Atrial Fibrillation/Flutter (hx or current) CV meds: Eliquis: Yes - Physical Exam General: alert & oriented x3, appears well, no apparent distress, speech clear, affect appropriate HEENT: mucus membranes moist Neck: supple neck, midline trachea, no JVD/HJR, no masses, no bruit, no lymphadenopathy, no thromegaly Cardiology: no murmur, PMI nondisplaced, irregularly irregular Lungs: clear to auscultation, no wheeze, rales, rhonchi, decreased breath sounds Neurology: cranial nerve 2-12 intact, grossly intact, no lateralizing findings - Chadsvasc Risk factors Congestive heart failure: 1 Hypertension: 1 Risk Score: 2 - Labs Result Diagrams: 09/02/20 08:50 08/30/20 04:31 - EKG Interpretation EKG Method: Telemetry EKG shows: Atrial fibrillation - Assessment/Plan Assessment/Plan: 1. Persisting atrial fibrillation. a. History of ELDER-guided cardioversion in 2016 and subsequent amiodarone therapy. b. Recurrent atrial flutter about a year ago prompting discontinuation of amiodarone. c. Current admission with a diastolic heart failure and atrial fibrillation with rapid ventricular rates. 2. CHADS-VASc score,2 diastolic heart failure and hypertension on Eliquis for oral anticoagulation. 3. History of COPD. 4. Obesity. rate control is better overnight. Proceed with ablation tomorrow as scheduled. Consent is signed. He is aware of the risk for bleeding, stroke, atrio- esophageal fistula, tamponade/ effusion, and arrhythmia recurrence, and wishes to proceed this hospitalization, schedule permitting. He reports no missed doses of eliquis for the past 30 days. he will be NPO after midnight holding his rate control medications and oral anticoagulation tomorrow morning. Case is scheduled for 8:00 a.m. Lifestyle modification is necessary to help the chances of maintaining SR: weight loss, managing HTN, and sleep study/cpap if indicated. He is high risk for ENRIQUE and should have an outpatient sleep study. Continue rate control and eliquis. Plan to hold eliquis Tuesday AM before PVAI
[2020-09-02 09:16] LABS: Anion Gap 14 mmol/L (10-20); BUN (Urea Nitrogen) 12 mg/dL (8.4-25.7); Calc. Creatinine Clearance 170 mL/min (70-130); Calcium 9.1 mg/dL (7.8-10.44); Carbon Dioxide 25 mmol/L (22-29); Chloride 98 mmol/L (98-107); Estimated GFR-MDRD 85; Glucose 99 mg/dL (70-105); Potassium 4.3 mmol/L (3.5-5.1); Sodium 133 mmol/L (136-145)
--- NOTE | 2020-09-02 14:46 | PDOC.HOSPP ---
- Subjective Encounter Date: 09/02/20 Encounter Time: 10:20 Subjective: Patient seen for follow-up regarding congestive heart failure exacerbation. He reports feeling better. He reports pain over the left arm is improved. - Objective Vital Signs & Weight: Vital Signs (12 hours) Temp Pulse Pulse Pulse Resp BP BP 09/02/20 11:20 98.9 F 101 H 24 H 09/02/20 11:04 118 H 84 180/76 H 138/65 09/02/20 08:17 97.5 F L 80 20 09/02/20 03:25 98.1 F 83 18 BP Pulse Ox 09/02/20 11:20 163/69 H 96 09/02/20 11:04 09/02/20 08:17 139/63 95 09/02/20 03:25 163/70 H 99 Weight Weight 306 lb 9 oz I&O: 09/01/20 09/02/20 09/03/20 06:59 06:59 06:59 Intake Total 1350 1250 Output Total 1475 1625 Balance -125 -375 Result Diagrams: 09/02/20 08:50 09/02/20 08:50 Additional Labs: I reviewed patient's labs and MAR EKG Reviewed by me: Yes (Atrial fibrillation on telemetry) Hospitalist ROS - Review of Systems Cardiovascular: denies: chest pain, palpitations, orthopnea, paroxysmal noc. dyspnea, edema, light headedness Gastrointestinal: denies: nausea, vomiting, abdominal pain, diarrhea, constipation, melena, hematochezia - Medication Medications: Active Medications Generic Name Dose Route Start Last Admin Trade Name Freq PRN Reason Stop Dose Admin Acetaminophen 650 mg 09/01/20 17:37 09/01/20 18:11 Acetaminophen 650 Mg/20.3 Ml Udcup PO 650 mg Q6H PRN Administration pain Albuterol Sulfate 2 puff 08/28/20 18:30 09/02/20 12:38 Albuterol 200 Puff (6.7gm Inhaler) INH Not Given [id number] [facility] Apixaban 5 mg 08/28/20 21:00 09/02/20 08:24 Apixaban 5 Mg Tab PO 5 mg BID [facility] Administration Aspirin 81 mg 08/29/20 09:00 09/02/20 08:24 Aspirin 81 Mg Enteric Coated Tablet PO 81 mg DAILY [facility] Administration Digoxin 0.25 mg 09/01/20 09:00 09/02/20 08:24 Digoxin 0.25 Mg Tab PO 09/02/20 21:00 0.25 mg QAM [facility] Administration Diltiazem HCl 180 mg 09/01/20 21:00 09/02/20 08:28 Diltiazem Hcl Cd 180 Mg Capsule PO 09/02/20 22:00 180 mg BID [facility] Administration Furosemide 40 mg 08/29/20 09:00 09/02/20 08:25 Furosemide 40 Mg/4 Ml Vial SLOW IVP 40 mg DAILY [facility] Administration Lisinopril 10 mg 08/30/20 09:00 09/02/20 08:25 Lisinopril 10 Mg Tab PO 10 mg DAILY [facility] Administration Nicotine 21 mg 08/28/20 21:00 09/01/20 22:54 Nicotine 21 Mg Patch TD 21 mg HS [facility] Administration - Exam General Appearance: awake alert Eye: anicteric sclera ENT: moist mucosa Neck: supple Heart: irregular Respiratory: CTAB Gastrointestinal: soft, non-tender Skin: no rashes Psychiatric: normal affect, normal behavior Hosp A/P - Plan -Assessment/plan New onset acute heart failure Continue IV furosemide Atrial fibrillation Continue diltiazem, apixaban and digoxin Patient to go for ablation tomorrow Type II NSTEMI Stable, continue to monitor. Falls Cardiac rehab following. Osteoarthritis of right knee. Stable -Morbid obesity Stable. Patient has superficial vein thrombosis of the left upper extremity.
[2020-09-02] MEDS: Nicotine 21 MG PATCH TD SCH (20:53)
[2020-09-03] MEDS: Albuterol 200 PUFF (6.7GM INHALER) INH SCH ×5 (01:53→19:07)
[2020-09-03 04:15] LABS: #Eosinphils 0.6 thou/uL (0.0-0.7); #Lymphocytes 2.5 thou/uL (1.20-3.40); #Monocytes 1.5 thou/uL (0.11-0.59); #Neutrophils 8.3 thou/uL (1.40-6.50); %Basophils 0.3 % (0.0-1.0); %Eosinophils 4.8 % (0.0-10.0); %Lymphocytes 19.4 % (21.0-51.0); %Monocytes 11.7 % (0.0-10.0); %Neutrophils 63.8 % (42.0-75.0); Hemoglobin 16.7 g/dL (14.0-18.0); Mean Corpuscular Hemoglobin 33.6 pg (27.0-31.0); Mean Corpuscular Volume 98.6 fL (78.0-98.0); Mean Platelet Volume 8.3 fL (7.4-10.4); Platelet Count 180 thou/uL (130-400); RBC Distribution Width 12.5 % (11.5-14.5); Red Blood Cell (RBC) Count 4.98 mill/uL (4.70-6.10)
[2020-09-03 04:36] LABS: Anion Gap 12 mmol/L (10-20); BUN (Urea Nitrogen) 17 mg/dL (8.4-25.7); Calc. Creatinine Clearance 143 mL/min (70-130); Calcium 8.9 mg/dL (7.8-10.44); Carbon Dioxide 26 mmol/L (22-29); Chloride 99 mmol/L (98-107); Estimated GFR-MDRD 70; Glucose 100 mg/dL (70-105); Potassium 4.7 mmol/L (3.5-5.1); Sodium 132 mmol/L (136-145)
[2020-09-03] MEDS ORDERED: Heparin 10,000 UNITS/ 10 ML VIAL ONE ×2 (06:49→11:04)
[2020-09-03] MEDS ORDERED: Fentanyl 100 MCG/2 ML VIAL ONE ×2 (07:03→11:25)
[2020-09-03] MEDS ORDERED: Promethazine HCl 25 MG/ML VIAL IM PRN (07:23)
[2020-09-03] MEDS ORDERED: Ondansetron HCl/PF 4 MG/2 ML Vial IVP PRN ×2 (07:23→11:47)
[2020-09-03] MEDS ORDERED: Promethazine HCl 25 MG/ML VIAL SLOW IVP PRN ×2 (07:23→11:47)
[2020-09-03] MEDS ORDERED: Meperidine HCl/PF 25 MG/ML VIAL SLOW IVP PRN (07:23)
[2020-09-03] MEDS: Furosemide 40 MG/4 ML VIAL SLOW IVP SCH (08:02)
[2020-09-03] MEDS ORDERED: Phenylephrine 10 MG/ML VIAL ONE (08:16)
[2020-09-03] MEDS ORDERED: Isoproterenol 0.2 MG/1 ML AMP ONE (08:29)
[2020-09-03] MEDS ORDERED: Glycopyrrolate 0.2 MG/ML 5 ML SYRINGE ONE (08:36)
[2020-09-03] MEDS ORDERED: Ondansetron PF 4 MG/2 ML Vial ONE (08:36)
[2020-09-03] MEDS ORDERED: Lidocaine 1% PF 5 ML VIAL ONE (08:36)
[2020-09-03] MEDS ORDERED: Dexamethasone 20 MG/5 ML VIAL ONE (08:36)
[2020-09-03] MEDS ORDERED: PHENYLEPHRINE-NS 100 MCG/ML 10 ML SYRINGE ONE (08:36)
[2020-09-03] MEDS ORDERED: PROPOFOL 200 MG/20 ML VIAL ONE (08:36)
[2020-09-03] MEDS ORDERED: Rocuronium Bromide 10 MG/ML (10ML VIAL) ONE ×2 (08:36)
[2020-09-03] MEDS ORDERED: Succinylcholine Chloride 20 MG/ML 10 ml SYRINGE FS ONE (08:36)
[2020-09-03] MEDS: Aspirin 81 mg Enteric Coated Tablet PO SCH (10:00)
[2020-09-03] MEDS: Lisinopril 10 MG TAB PO SCH ×2 (10:00→15:37)
[2020-09-03] MEDS ORDERED: Protamine Sulfate 50 MG/5 ML VIAL ONE ×2 (11:04→11:23)
[2020-09-03] MEDS ORDERED: Heparin 25,000 units/D5W 500 ML ONE (11:04)
[2020-09-03] MEDS ORDERED: Furosemide 40 MG/4 ML VIAL ONE (11:25)
[2020-09-03] MEDS ORDERED: SUGAMMADEX SODIUM 200 MG/2 ML VIAL ONE (11:42)
[2020-09-03] MEDS ORDERED: Ketorolac Tromethamine 30 MG/ML VIAL IVP PRN (13:55)
[2020-09-03] MEDS ORDERED: Cepastat Lozenges 1 LOZ PO PRN (15:36)
[2020-09-03] MEDS: Sucralfate 1 GM TAB PO SCH ×2 (15:36→20:43)
[2020-09-03] MEDS ORDERED: traMADol HCl 50 MG TAB PO PRN (15:37)
--- NOTE | 2020-09-03 15:39 | PDOC.HOSPP ---
- Subjective Encounter Date: 09/03/20 Encounter Time: 15:37 Subjective: Seen for follow-up regarding CHF exacerbation. He had ablation earlier today. Denies chest pain or shortness of breath. Complains of sore throat. - Objective Vital Signs & Weight: Vital Signs (12 hours) Temp Pulse Resp BP Pulse Ox 09/03/20 15:03 97.5 F L 92 20 177/74 H 92 L 09/03/20 12:40 97.4 F L 89 20 128/66 95 09/03/20 04:00 98.7 F 86 18 148/69 H 96 Weight Weight 298 lb 12.8 oz I&O: 09/02/20 09/03/20 09/04/20 06:59 06:59 06:59 Intake Total 1250 1000 Output Total 1625 1390 Balance -375 -390 Result Diagrams: 09/03/20 03:52 09/03/20 03:52 Additional Labs: Labs and MAR reviewed by me EKG Reviewed by me: Yes (Telemetry shows normal sinus rhythm) Hospitalist ROS - Review of Systems Cardiovascular: denies: chest pain, palpitations, orthopnea, paroxysmal noc. dyspnea, edema, light headedness Gastrointestinal: denies: nausea, vomiting, abdominal pain, diarrhea, constipation, melena, hematochezia - Medication Medications: Active Medications Generic Name Dose Route Start Last Admin Trade Name Freq PRN Reason Stop Dose Admin Acetaminophen 650 mg 09/01/20 17:37 09/01/20 18:11 Acetaminophen 650 Mg/20.3 Ml Udcup PO 650 mg Q6H PRN Administration pain Albuterol Sulfate 2 puff 08/28/20 18:30 09/03/20 14:34 Albuterol 200 Puff (6.7gm Inhaler) INH 2 puff [id number] [facility] Administration Apixaban 5 mg 08/28/20 21:00 09/02/20 20:53 Apixaban 5 Mg Tab PO 5 mg BID [facility] Administration Aspirin 81 mg 08/29/20 09:00 09/03/20 10:00 Aspirin 81 Mg Enteric Coated Tablet PO Not Given DAILY [facility] Furosemide 40 mg 08/29/20 09:00 09/03/20 08:02 Furosemide 40 Mg/4 Ml Vial SLOW IVP Not Given DAILY [facility] Lisinopril 10 mg 08/30/20 09:00 09/03/20 15:37 Lisinopril 10 Mg Tab PO 10 mg DAILY [facility] Administration Nicotine 21 mg 08/28/20 21:00 09/02/20 20:53 Nicotine 21 Mg Patch TD 21 mg HS [facility] Administration Sodium Chloride 10 ml 09/03/20 09:00 09/03/20 10:00 Flush - Normal Saline 10 Ml Syringe IVF Not Given Q12HR [facility]LO Sucralfate 1 gm 09/03/20 17:00 09/03/20 15:36 Sucralfate 1 Gm Tab PO 09/17/20 11:31 1 gm ACHS [facility]LO Administration - Exam General Appearance: awake alert Eye: anicteric sclera ENT: no oropharyngeal lesions, moist mucosa Neck: supple Heart: RRR Respiratory: CTAB Gastrointestinal: soft, non-tender Skin: no rashes Psychiatric: normal affect, normal behavior Hosp A/P - Plan -Assessment/plan New onset acute heart failure Clinically improving, continue IV furosemide Atrial fibrillation Let us post ablation. Continue to monitor on telemetry. Type II NSTEMI Stable Falls Cardiac rehab following. Osteoarthritis of right knee. Stable -Morbid obesity Stable.
[2020-09-03] MEDS ORDERED: Cepastat Lozenges 1 LOZ PO SCH (15:45)
[2020-09-03] MEDS ORDERED: traMADol HCl 50 MG TAB PO SCH (15:45)
[2020-09-03] MEDS ORDERED: Sucralfate 1 GM TAB PO SCH (17:00)
[2020-09-03] MEDS: Apixaban 5 MG TAB PO SCH ×2 (20:42→21:48)
[2020-09-03] MEDS: Nicotine 21 MG PATCH TD SCH (20:44)
--- NOTE | 2020-09-03 21:11 | EKG ---
Test Reason : POST ABLATION Blood Pressure : / mmHG Vent. Rate : 089 BPM Atrial Rate : 089 BPM P-R Int : 214 ms QRS Dur : 108 ms QT Int : 374 ms P-R-T Axes : 070 -56 078 degrees QTc Int : 455 ms Sinus rhythm with 1st degree A-V block Left axis deviation T wave abnormality, consider lateral ischemia Abnormal ECG When compared with ECG of 28-AUG-2020 14:23, (Unconfirmed) Sinus rhythm has replaced Atrial fibrillation Vent. rate has increased BY 34 BPM QRS axis Shifted left ST no longer depressed in Lateral leads Confirmed by Sam WILLIAM ([id number]) on 09/03/2020 9:11:16 PM Referred By: [facility] Confirmed By:Sam WILLIAM
[2020-09-04] MEDS: Albuterol 200 PUFF (6.7GM INHALER) INH SCH ×4 (00:13→10:51)
[2020-09-04 07:32] VITALS: TEMP 97.5
[2020-09-04] MEDS ORDERED: Potassium Chloride 20 MEQ TAB PO SCH (09:00)
[2020-09-04] MEDS ORDERED: Furosemide 40 MG TAB PO SCH (09:00)
--- NOTE | 2020-09-04 09:13 | PDOC.EP ---
- Subjective Date: 09/04/20 Time: 09:12 Interval History: He feels well today. He is eating, drinking, voiding normally. He denies any pain or bleeding problems overnight and his leg sites. He does endorse some occasional chest discomfort with deep inspiration post ablation. He has been able to walk back and forth throughout the room with no heart racing and significantly less shortness of breath - Review of Systems Constitutional: denies: chills, fever, malaise, sweats, weakness Respiratory: denies: cough, shortness of breath, sputum, wheezing Cardiology: denies: chest pain, edema, heart racing, light headedness, palpitations, passing out Gastrointestinal: denies: abdominal pain, constipation Musculoskeletal: denies: unstable gait, falls - Objective Allergies/Adverse Reactions: Allergies Allergy/AdvReac Type Severity Reaction Status Date / Time No Known Drug Allergies Allergy Verified 08/28/20 22:05 Current Medications Acetaminophen (Acetaminophen 650 Mg/20.3 Ml Udcup) 650 mg PO Q6H PRN PRN Reason: pain Last Admin: 09/01/20 18:11 Dose: 650 mg Documented by: Albuterol Sulfate (Albuterol 200 Puff (6.7gm Inhaler)) 2 puff INH [id number] [facility] Last Admin: 09/04/20 07:36 Dose: 2 puff Documented by: Albuterol Sulfate (Albuterol 200 Puff (6.7gm Inhaler)) 2 puff INH Q4H PRN PRN Reason: SOB &/or Wheezing Apixaban (Apixaban 5 Mg Tab) 5 mg PO BID [facility] Last Admin: 09/03/20 21:48 Dose: 5 mg Documented by: Aspirin (Aspirin 81 Mg Enteric Coated Tablet) 81 mg PO DAILY [facility] Last Admin: 09/03/20 10:00 Dose: Not Given Documented by: Diltiazem HCl (Diltiazem Hcl Cd 180 Mg Capsule) 180 mg PO 2100 [facility] Last Admin: 09/03/20 20:43 Dose: 180 mg Documented by: Furosemide (Furosemide 40 Mg/4 Ml Vial) 40 mg SLOW IVP DAILY [facility] Last Admin: 09/03/20 08:02 Dose: Not Given Documented by: Furosemide (Furosemide 40 Mg Tab) 40 mg PO DAILY [facility] Ketorolac Tromethamine (Ketorolac Tromethamine 30 Mg/Ml Vial) 30 mg IVP Q6H PRN PRN Reason: Mild-Moderate Pain (1-5) Stop: 09/08/20 13:56 Lisinopril (Lisinopril 10 Mg Tab) 10 mg PO DAILY [facility] Last Admin: 09/03/20 15:37 Dose: 10 mg Documented by: Miscellaneous Medication (Electrolyte Replacement Protocol) 0 each FS ASDIR PRN; Protocol PRN Reason: ELECTROLYTE REPLACEMENT Nicotine (Nicotine 21 Mg Patch) 21 mg TD HS [facility] Last Admin: 09/03/20 20:44 Dose: 21 mg Documented by: Pantoprazole Sodium (Pantoprazole 40 Mg Tab) 40 mg PO DAILY [facility] Stop: 10/03/20 09:01 Potassium Chloride (Potassium Chloride 20 Meq Tab) 20 meq PO QA-[facility] Sodium Chloride (Flush - Normal Saline 10 Ml Syringe) 10 ml IVF Q12HR [facility] Last Admin: 09/03/20 20:44 Dose: 10 ml Documented by: Sodium Chloride (Flush - Normal Saline 10 Ml Syringe) 10 ml IVF PRN PRN PRN Reason: Saline Flush Sucralfate (Sucralfate 1 Gm Tab) 1 gm PO ACHS [facility] Stop: 09/17/20 11:31 Last Admin: 09/03/20 20:43 Dose: 1 gm Documented by: Throat Lozenges (Cepastat Lozenges 1 Jordyn) 1 jordyn PO Q2H PRN PRN Reason: Sore Throat Last Admin: 09/03/20 21:48 Dose: 1 jordyn Documented by: Tramadol HCl (Tramadol Hcl 50 Mg Tab) 50 mg PO Q6H PRN PRN Reason: Pain Vital Signs & Weight: Vital Signs Temp Pulse Resp BP BP Pulse Ox 09/04/20 07:29 97.5 F L 92 19 148/73 H 92 L 09/04/20 04:00 98.3 F 73 18 165/73 H 98 Weight 317 lb 8 oz I/O: I/O 09/03/20 09/04/20 09/05/20 06:59 06:59 06:59 Intake Total 1000 1700 Output Total 1390 0805 Balance -390 -180 - Quality Measures Condition: Atrial Fibrillation/Flutter (hx or current) CV meds: Eliquis: Yes - Physical Exam General: alert & oriented x3, appears well, speech clear HEENT: mucus membranes moist, normocephaly Neck: supple neck, midline trachea, no lymphadenopathy Cardiology: regular rate and rhythm, no murmur, PMI nondisplaced Lungs: no wheezes, no rales, no rhonchi, decreased breath sounds Neurology: cranial nerve 2-12 intact, grossly intact, no lateralizing findings Abdomen: unremarkable, active bowel sounds, no pulsations/bruits Extremities: dry, strong pulses, warm Skin: groin sites stable - Chadsvasc Risk factors Congestive heart failure: 1 Hypertension: 1 Risk Score: 2 - Labs Result Diagrams: 09/03/20 03:52 09/03/20 03:52 - EKG Interpretation EKG Method: Telemetry EKG shows: Sinus rhythm - Assessment/Plan Assessment/Plan: 1. Persisting atrial fibrillation. a. History of ELDER-guided cardioversion in 2015 and subsequent amiodarone therapy. b. Recurrent atrial flutter about a year ago prompting discontinuation of amiodarone. c. Current admission with a diastolic heart failure and atrial fibrillation with rapid ventricular rates. 2. CHADS-VASc score,2 diastolic heart failure and hypertension on Eliquis for oral anticoagulation. 3. History of COPD. 4. Obesity. Maintaining sinus rhythm post ablation on 09/03/2020, no early recurrence seen and minimal Pac burden. Total ablation time 32 minutes. If early recurrence is seen plan to start short-term amiodarone. okay for discharge by EP. please discharge with the following medications: 1. Carafate 1 g p.o. q.i.d. x2 weeks 2. Protonix 40 mg p.o. daily x4 weeks 3. furosemide 40 mg p.o. daily p.r.n. shortness of breath / weight gain/ edema 4. potassium chloride 20 mEq p.o. daily p.r.n. to be taken with furosemide 5. Eliquis 5 mg p.o. b.i.d. 6. diltiazem CD 180 mg daily 2 week wound check and 6 week post ablation follow-up appointment will be arranged.
[2020-09-04] MEDS: Lisinopril 10 MG TAB PO SCH (09:41)
[2020-09-04] MEDS: Sucralfate 1 GM TAB PO SCH ×2 (09:41→11:06)
[2020-09-04] MEDS: Aspirin 81 mg Enteric Coated Tablet PO SCH (09:41)
[2020-09-04] MEDS: Apixaban 5 MG TAB PO SCH (09:42)
--- NOTE | 2020-09-04 09:51 | OP ---
DATE OF PROCEDURE: 09/03/2020 PROCEDURE PERFORMED: Pulmonary venous isolation, electrophysiology study, and radiofrequency ablation. REASON FOR PROCEDURE: Mr. Perera is a 59-year-old gentleman with prior history of persistent atrial fibrillation. The failed amiodarone in the past, which was discontinued about a year ago. Now presenting with diastolic heart failure with atrial fibrillation, rapid ventricular rate. He is here for pulmonary venous isolation procedure. He has been anticoagulated without fail for the last year. DESCRIPTION OF PROCEDURE: The patient received general anesthesia by Anesthesia specialist. The left and right femoral veins were prepped, draped, and anesthetized using subcutaneous lidocaine, and under ultrasound guidance, both femoral veins were cannulated x2. On the left side, an 11-Angolan sheath and an 8-Angolan sheath were introduced through which an intracardiac echocardiogram probe as well as a SidecaraNav pace mapping catheter was advanced to the right atrium. The intracardiac echo probe was used to monitor the transeptal procedure, catheter manipulation as well as the pericardial space throughout the procedure. The DecaNav catheter was used to obtain a 3D map of the right atrium including His bundle and CS locations were seeked out and the catheter was eventually placed in the CS. Pacing, mapping, and recording were performed at each location including pacing at the later stage via the ablation catheter. The left atrium was also paced via the CS. Following findings were noted. Baseline rhythm was atrial fibrillation with variable AV conduction, QRS is 59 msec, QT 290 msec, HV was 70 msec. The AV Wenckebach cycle length was 360 msec. Retrograde Wenckebach cycle length was 510 msec. AV nain ERP was five 500/180 msec. From the right femoral venous access, two SL1 sheaths were used to perform a transseptal puncture after IV heparin was administered. The IV heparin was bolused after given in a drip fashion and adjusted to keep ACT over 350 throughout the procedure. The SL1 sheath was used to perform transseptal puncture with the help of a powered [place] needle under ultrasound and fluoroscopic monitoring. Through the SL1 sheath, a Lasso catheter and a ThermoCool SFST ablation catheter were advanced to the left atrium. 3D map of the left atrium was obtained and noted to have marked enlargement as well as gmnrherb-[id number]-[id number] scarring seen. The left common pulmonary vein was noted to separate the right pulmonary vein was seen. Pulmonary venous isolation was performed by wide area circumferential ablation. Also roof line and inferoposterior line were drawn to isolate the posterior wall. Throughout the posterior wall minaya, special attention was paid to the esophageal temperatures by adjusting the probe to avoid excessive heating. Any temperature rise was met with excess irrigation through the catheter with high-flow saline. At the end of the pulmonary veins and posterior wall isolation, the patient remained in atrial fibrillation. Additional fractionated potentials were seeked out in the inferior wall and also in the interatrial septum. Ablation was performed over the CS roof to eliminate these fractionated potentials. At the end of the case, cardioversion was performed at 200 joules to restore sinus rhythm. Burst atrial pacing at this point did not re-induce atrial arrhythmias. The ablation catheter was advanced to left ventricle transiently and left ventricular pacing was performed to rule out accessory pathway and to establish retrograde Wenckebach cycle length. At the end of the case, the catheters were removed from the left atrium and the IV heparin was stopped and reversed with protamine administration. IV Lasix was also given. The intracardiac echo probe proved to have no change in the pericardial space and also cardiac silhouette did not change throughout the procedure. The sheaths were exchanged to short sheaths and Vascade closure was performed on all 4 femoral venous access. The total ablation time was 35.7 minutes at 40 serrano, a total of 117 ablation lesions were placed. CONCLUSION: 1. Successful pulmonary venous isolation procedure. 2. A posterior wall isolation and inferior wall and septal ablation lesions were also placed. 3. Mild HV prolongation noted with no additional AV nain or His-Purkinje disease seen. 4. No evidence of accessory pathway. 5. No evidence of dual AV nain physiology present. PLAN: Continue oral anticoagulation and monitor for recurrent atrial arrhythmias. Job ID: [id number] [facility]
--- NOTE | 2020-09-04 10:33 | PDOC.DS.DS ---
Provider - Provider Date of Admission: 08/28/20 18:05 Date of Discharge: 09/04/20 Admitting Provider: Landry Gordon MD Consultations: Cardiology (Dr. Wood), Other (Electrophysiology Dr. Price) Primary Care Physician: [facility] Course - Hospital Course Hospital Course: Discharge diagnosis: 1. Atrial fibrillation with rapid ventricular response 2. Diastolic congestive heart failure exacerbation, NYHA class III 3. Status post ablation during this hospitalization 4. Superficial vein thrombosis 5. Hyponatremia 6. COVID-19 test negative Hospital course: Patient is a pleasant 59-year-old gentleman who was admitted to the hospital on August 28, 2020 for atrial fibrillation with rapid ventricular response and congestive heart failure. He was seen by cardiology and electrophysiology services. On August 29 he had Linq recorder placement. 2D echocardiogram showed impaired relaxation compatible with diastolic dysfunction. This was a technically inadequate exam. He had moderate to severe aortic regurgitation and mild mitral regurgitation. In terms of congestive heart failure, improved with intravenous diuretics. He has been started on oral diuretics and potassium supplements. He continued to be in atrial fibrillation during most of this hospitalization. On September 03, 2020 he underwent successful ablation. He is being discharged home in a stable condition. Many thanks for allowing me to participate in your patient's care. Please feel free to contact me with any questions or concerns. He also developed left arm swelling near the site of intravenous access. Ultrasound Dopplers showed thrombus involving the cephalic vein at the antecubital fossa. Discharge destination: Home Total amount of time spent coordinating this discharge: 32 minutes Resuscitation Status: 08/28/20 18:30 Resuscitation Status Routine Resuscitation Status: FULL: Full Resuscitation - Labs Lab Results: 09/03/20 03:52 09/03/20 03:52 Abnormal Lab Results - Last 48 hrs 09/03/20 03:52: Sodium 132 L 09/03/20 03:52: WBC 13.0 H, MCV 98.6 H, MCH 33.6 H, Lymphocytes % 19.4 L, Monocytes % 11.7 H, Neutrophils # 8.3 H, Monocytes # 1.5 H - Physical Exam Vitals: Vital Signs (12 hours) Temp Pulse Resp BP BP BP Pulse Ox 09/04/20 09:41 148/73 H 09/04/20 07:29 97.5 F L 92 19 148/73 H 92 L 09/04/20 04:00 98.3 F 73 18 165/73 H 98 Weight Weight 317 lb 8 oz Physical Exam: The patient was seen and examined on the day of discharge. Patient denies chest pain or shortness of breath. Vital signs are stable. S1 and S2 are heard. Lungs are clear to auscultation bilaterally. Plan - Discharge Medications Prescriptions: Sucralfate [Carafate] 1 gm PO ACHS #56 tab Furosemide [Lasix] 40 mg PO DAILY #30 tab Potassium Chloride 10 meq PO DAILY #30 tab Pantoprazole [Protonix] 40 mg PO DAILY #30 tab Lisinopril [Zestril] 10 mg PO DAILY #30 tab Home Medications: Medication Instructions Recorded Confirmed Type Apixaban [Eliquis] 5 mg PO BID 10/07/16 08/28/20 History Aspirin [Ecotrin Low Strength] 81 mg PO DAILY tab 10/12/16 08/28/20 Rx Diltiazem HCl [Diltiazem 24Hr ER] 180 mg PO DAILY 08/28/20 08/28/20 History traMADol HCl [Tramadol HCl] 50 mg PO BID PRN 08/28/20 08/28/20 History Furosemide [Lasix] 40 mg PO DAILY #30 tab 09/04/20 Rx Lisinopril [Zestril] 10 mg PO DAILY #30 tab 09/04/20 Rx Nicotine [Nicoderm CQ] 21 mg TD HS patch 09/04/20 Rx Pantoprazole [Protonix] 40 mg PO DAILY #30 tab 09/04/20 Rx Potassium Chloride 10 meq PO DAILY #30 tab 09/04/20 Rx Sucralfate [Carafate] 1 gm PO ACHS #56 tab 09/04/20 Rx Allergies: No Known Drug Allergies Allergy (Verified 08/28/20 22:05) - Discharge Instructions Activity:: Activity as Tolerated Nourishment:: Heart Healthy Diet - Follow up Plan Referrals: Cardiac Rehab -[place] [Outside] - 7 Days ( Your doctor has ordered outpatient cardiac rehab for you to begin within 1-2 weeks after you go home from the hospital. The location nearest to you is the [facility] [facility]. The front office in [place] will call you in 3-5 days to get you scheduled for your evaluation. If you do not receive a call, please reach out to them at [phone] and request an appointment. Should you have any trouble or need assistance, please call the cardiac rehab main line in [place] at [phone]. ) Aubrie Nunez NP [[facility] Professional] - 09/08/20 1:00 pm (Please remember to bring all medication bottles to clinic and all hospital disc harge paperwork. The clinic will call you 09/04 at 2:30pm for registration. ) Sreekanth Wood MD [Active] - 2-3 Weeks Chema Price MD [Furniture Refinisher] - 2-3 Weeks Disposition: HOME Quality - Care Measures CORE MEASURES:: HF - Stroke/TIA Did you prescribe antithrombotic therapy?: Yes Did you prescribe anticoagulant for A Fib/Flutter?: Yes Did you prescribe a statin medication?: Yes
[2020-09-04] MEDS: Furosemide 40 MG/4 ML VIAL SLOW IVP SCH (10:51)
[2020-09-04] MEDS: Acetaminophen 650 MG/20.3 ML UDCUP PO PRN (11:13)
[2020-09-04 12:35] VITALS: BP 144/63
--- NOTE | 2020-09-06 14:23 | EKG ---
Test Reason : Blood Pressure : / mmHG Vent. Rate : 060 BPM Atrial Rate : 312 BPM P-R Int : 000 ms QRS Dur : 096 ms QT Int : 438 ms P-R-T Axes : 000 -22 053 degrees QTc Int : 438 ms Atrial fibrillation Inferior infarct , age undetermined Abnormal ECG Confirmed by KUSH ASTORGA DO ([id number]), video news editor YOVANI MOREJON ([id number]) on 09/06/2020 2:23:29 PM Referred By: Confirmed By:KUSH ASTORGA DO
== END 2020-09-04 14:05 | disposition home or self-care (01) | DRG 273 ==
LOC: ERS 14:14 → 2NO 18:05
PROVIDERS: ADMIT Student in an Organized Health Care Education/Training Program; ATTEND Internal Medicine
PROC: 0JH632Z Insertion of Monitoring Device into Chest Subcutaneous Tissue and Fascia, Percutaneous Approach (ICD-10-PCS; 2020-08-29)
PROC: 02583ZZ Destruction of Conduction Mechanism, Percutaneous Approach (ICD-10-PCS; principal; 2020-09-03)
PROC: 5A2204Z Restoration of Cardiac Rhythm, Single (ICD-10-PCS; 2020-09-03)
PROC: 4A023FZ Measurement of Cardiac Rhythm, Percutaneous Approach (ICD-10-PCS; 2020-09-03)
PROC: 4A0234Z Measurement of Cardiac Electrical Activity, Percutaneous Approach (ICD-10-PCS; 2020-09-03)
PROC: 02K83ZZ Map Conduction Mechanism, Percutaneous Approach (ICD-10-PCS; 2020-09-03)
DX: I48.19 Other persistent atrial fibrillation (principal); I50.33 Acute on chronic diastolic (congestive) heart failure; I21.A1 Myocardial infarction type 2; E87.1 Hypo-osmolality and hyponatremia; Z68.41 Body mass index [BMI] 40.0-44.9, adult; I82.612 Acute embolism and thrombosis of superficial veins of left upper extremity; Z20.828 Contact with and (suspected) exposure to other viral communicable diseases; M19.90 Unspecified osteoarthritis, unspecified site; I11.0 Hypertensive heart disease with heart failure; F17.210 Nicotine dependence, cigarettes, uncomplicated; M17.11 Unilateral primary osteoarthritis, right knee; D72.829 Elevated white blood cell count, unspecified; J44.9 Chronic obstructive pulmonary disease, unspecified; I48.92 Unspecified atrial flutter; E66.01 Morbid (severe) obesity due to excess calories; I08.0 Rheumatic disorders of both mitral and aortic valves; E78.1 Pure hyperglyceridemia; Z79.01 Long term (current) use of anticoagulants
CPT/HCPCS: 33285; 36415; 71045; 76942; 80048; 80053; 82550; 82553; 83690; 83735; 83880; 84484; 85025; 85347; 87635; 92960; 93005; 93010; 93306; 93613; 93622; 93623; 93656; 93657; 93662; 93798; 97139; C1732; C1759; C1764; J1100; J1160; J1644; J1940; J2370; J2405; J2704; J2720; J3010; J3475; U0003

== ENCOUNTER 2020-09-19 06:30 | Outpatient (CLI) | payer OTHER ==
[2020-09-19 14:57] LABS: #Basophils 0.1 10x3/uL (0.0-0.2); #Eosinphils 0.3 10x3/uL (0.0-0.5); #Monocytes 0.9 10x3/uL (0.0-1.1); #Neutrophils 5.8 10x3/uL (1.5-8.4); %Basophils 0.5 % (0.0-2.0); %Lymphocytes 31.6 % (18.0-47.0); %Monocytes 8.9 % (0.0-10.0); %Neutrophils 55.5 % (40.0-75.0); Hemoglobin 15.8 g/dL (14.0-18.0); Mean Corpuscular HGB CONC 33.8 G/DL (32.0-36.0); Mean Corpuscular Hemoglobin 31.7 PG (27.0-33.0); Mean Platelet Volume 10.6 fl (7.4-10.4); Platelet Count 237 10x3/uL (130-400); RBC Distribution Width 12.1 % (11.5-14.5); Red Blood Cell (RBC) Count 4.98 10x6/uL (4.40-5.80); White Blood Cell (WBC) Count 10.4 10x3/uL (4.5-11.0)
[2020-09-19 15:11] LABS: Anion Gap 17 mmol/L (10-20); BUN (Urea Nitrogen) 14 mg/dL (8.4-25.7); Calc. Creatinine Clearance 0 mL/min (70-130); Calcium 8.5 mg/dL (7.8-10.44); Carbon Dioxide 22 mmol/L (23-31); Chloride 103 mmol/L (98-107); Estimated GFR-MDRD 77; Glucose 97 mg/dL (80-115); Potassium 4.5 mmol/L (3.5-5.1); Sodium 137 mmol/L (136-145)
[2020-09-20 03:17] LABS: SARS-CoV-2 MS2 Positive; SARS-CoV-2 N Gene Negative; SARS-CoV-2 S Gene Negative; SARS-CoV-2 by NAA Not Detected (NotDetected); SARS-CoV-2 orf1ab Negative
== END 2020-09-19 06:31 | disposition home or self-care (01) ==
LOC: LABBT 06:30
PROVIDERS: ATTEND Internal Medicine Cardiovascular Disease
DX: Z01.812 Encounter for preprocedural laboratory examination (principal); Z20.828 Contact with and (suspected) exposure to other viral communicable diseases
CPT/HCPCS: 80048; 85025; 87635; U0003

== ENCOUNTER 2021-04-06 08:39 | Outpatient (CLI) | payer OTHER ==
[2021-04-06 09:48] LABS: Hemoglobin 16.7 g/dL (13.5-17.5); Mean Corpuscular HGB CONC 32.9 g/dL (32.0-36.0); Mean Corpuscular Hemoglobin 30.8 pg (27.0-33.0); Mean Corpuscular Volume 93.4 fl (81.2-95.1); Platelet Count 220 10x3/uL (150-450); RBC Distribution Width 13.4 % (11.5-14.5); Red Blood Cell (RBC) Count 5.43 10x6/uL (4.32-5.72); White Blood Cell (WBC) Count 12.7 10x3/uL (3.5-10.5)
[2021-04-06 10:16] LABS: PTT 33.9 sec (22.0-33.0); Prothrombin Time 11.3 sec (9.5-12.1)
[2021-04-06 10:17] LABS: Anion Gap 17 mmol/L (10-20); BUN (Urea Nitrogen) 9 mg/dL (8.4-25.7); Calc. Creatinine Clearance 0 mL/min (70-130); Calcium 8.9 mg/dL (7.8-10.44); Carbon Dioxide 21 mmol/L (23-31); Chloride 103 mmol/L (98-107); Glucose 170 mg/dL (80-115); Potassium 4.2 mmol/L (3.5-5.1); Sodium 137 mmol/L (136-145)
[2021-04-06 18:26] LABS: SARS-CoV-2 PCR by NAA Not Detected (NotDetected)
== END 2021-04-06 08:40 | disposition home or self-care (01) ==
LOC: LABBT 08:39
PROVIDERS: ATTEND Internal Medicine Cardiovascular Disease
DX: Z01.812 Encounter for preprocedural laboratory examination (principal); Z20.822 Contact with and (suspected) exposure to COVID-19; I48.91 Unspecified atrial fibrillation
CPT/HCPCS: 80048; 85027; 85610; 85730; U0003; U0005

== ENCOUNTER 2021-04-08 07:40 | Day surgery (SDC) | payer MEDICARE ==
[2021-04-07 08:43] VITALS: BMI 43.4
[2021-04-08] MEDS ORDERED: Lidocaine 1% PF 5 ML VIAL ONE (09:24)
[2021-04-08] MEDS ORDERED: PROPOFOL 20 ML ONE (09:24)
== END 2021-04-08 10:55 | disposition home or self-care (01) ==
LOC: CCL 07:40
PROVIDERS: ATTEND Internal Medicine Cardiovascular Disease
PROC: 5A2204Z Restoration of Cardiac Rhythm, Single (ICD-10-PCS; principal; 2021-04-08)
DX: I48.4 Atypical atrial flutter (principal); I48.19 Other persistent atrial fibrillation; J42 Unspecified chronic bronchitis; I11.0 Hypertensive heart disease with heart failure; I50.30 Unspecified diastolic (congestive) heart failure; M19.90 Unspecified osteoarthritis, unspecified site; E66.9 Obesity, unspecified; Z68.42 Body mass index [BMI] 45.0-49.9, adult; Z79.01 Long term (current) use of anticoagulants; Z79.82 Long term (current) use of aspirin; Z79.899 Other long term (current) drug therapy; F17.290 Nicotine dependence, other tobacco product, uncomplicated
CPT/HCPCS: 92960; 93005; 93010; J2704

== ENCOUNTER 2021-12-04 13:15 | Inpatient (IN) | payer OTHER, SELFPAY ==
[2021-11-30 13:26] VITALS: BMI 43.4
[2021-12-09] MEDS ORDERED: Heparin 10,000 UNITS/ 10 ML VIAL ONE (09:26)
[2021-12-09] MEDS ORDERED: Ketorolac Tromethamine 30 MG/ML VIAL ONE (09:44)
[2021-12-09] MEDS ORDERED: PROPOFOL 200 MG/20 ML VIAL ONE (09:44)
[2021-12-09] MEDS ORDERED: Glycopyrrolate 0.2 MG/ML 5 ML SYRINGE ONE (09:44)
[2021-12-09] MEDS ORDERED: Ondansetron PF 4 MG/2 ML Vial ONE (09:44)
[2021-12-09] MEDS ORDERED: Rocuronium Bromide 10 MG/ML (10ML VIAL) ONE (09:44)
[2021-12-09] MEDS ORDERED: Dexamethasone 20 MG/5 ML VIAL ONE (09:44)
[2021-12-09] MEDS ORDERED: Lidocaine 1% PF 5 ML VIAL ONE (09:44)
[2021-12-09] MEDS ORDERED: Iopamidol 370 76% 100 ML VIAL ONE (10:18)
[2021-12-09] MEDS ORDERED: Protamine Sulfate 50 MG/5 ML VIAL ONE (10:50)
[2021-12-09] MEDS ORDERED: Fentanyl 100 MCG/2 ML VIAL ONE (11:43)
== END 2021-12-11 14:40 | disposition home or self-care (01) | DRG 274 ==
LOC: UNDOADMIN 12-09 07:15 → SURG A 12-09 07:15 → UNDODISIN 12-09 16:18
PROVIDERS: ADMIT Internal Medicine Cardiovascular Disease; ATTEND Internal Medicine Cardiovascular Disease
PROC: 02L73DK Occlusion of Left Atrial Appendage with Intraluminal Device, Percutaneous Approach (ICD-10-PCS; principal; 2021-12-09)
PROC: B24BZZ4 Ultrasonography of Heart with Aorta, Transesophageal (ICD-10-PCS; 2021-12-09)
DX: I48.19 Other persistent atrial fibrillation (principal); Z00.6 Encounter for examination for normal comparison and control in clinical research program; Z20.822 Contact with and (suspected) exposure to COVID-19; Z95.818 Presence of other cardiac implants and grafts; Z91.81 History of falling; Z79.51 Long term (current) use of inhaled steroids; Z79.899 Other long term (current) drug therapy; Z79.82 Long term (current) use of aspirin; Z82.49 Family history of ischemic heart disease and other diseases of the circulatory system; Z90.49 Acquired absence of other specified parts of digestive tract; Z79.01 Long term (current) use of anticoagulants; I25.2 Old myocardial infarction; E11.9 Type 2 diabetes mellitus without complications; I48.4 Atypical atrial flutter; I11.0 Hypertensive heart disease with heart failure; I50.9 Heart failure, unspecified
CPT/HCPCS: 33340; 85347; 93005; 93306; 93312; 93662; C1759; J1100; J1644; J1885; J2405; J2704; J2720; J3010; Q9967

== ENCOUNTER 2021-12-07 12:43 | Outpatient (CLI) | payer OTHER | END 2021-12-07 12:44 | disposition home or self-care (01) | LOC: LABBT 12:43 | PROVIDERS: ATTEND Internal Medicine Cardiovascular Disease | DX: Z01.812 Encounter for preprocedural laboratory examination (principal); I48.4 Atypical atrial flutter; I48.19 Other persistent atrial fibrillation; Z79.899 Other long term (current) drug therapy; Z20.822 Contact with and (suspected) exposure to COVID-19 | CPT/HCPCS: 80053; 85027; 85610; 85730; 86850; 86900; 86901; U0003; U0005 ==

== ENCOUNTER 2022-12-16 08:52 | Day surgery (SDC) | payer MEDICARE ==
[2022-12-15 16:01] VITALS: BMI 40.4
[2022-12-16 10:02] LABS: #Basophils 0.1 thou/uL (0.0-0.2); #Eosinphils 0.1 thou/uL (0.0-0.7); #Lymphocytes 2.6 thou/uL (1.20-3.40); #Monocytes 0.6 thou/uL (0.11-0.59); #Neutrophils 6.4 thou/uL (1.40-6.50); %Basophils 0.6 % (0.0-1.0); %Eosinophils 1.1 % (0.0-10.0); %Lymphocytes 26.8 % (21.0-51.0); %Monocytes 6.2 % (0.0-10.0); %Neutrophils 65.4 % (42.0-75.0); Hemoglobin 16.4 g/dL (14.0-18.0); Mean Corpuscular HGB CONC 33.1 g/dL (32.0-36.0); Mean Corpuscular Hemoglobin 32.5 pg (27.0-31.0); Mean Corpuscular Volume 98.1 fl (78.0-98.0); Mean Platelet Volume 7.7 fL (7.4-10.4); Platelet Count 196 10x3/uL (130-400); RBC Distribution Width 13.6 % (11.5-14.5); Red Blood Cell (RBC) Count 5.06 mill/uL (4.70-6.10); White Blood Cell (WBC) Count 9.7 10x3/uL (4.8-10.8)
[2022-12-16 10:22] LABS: Anion Gap 13 mmol/L (10-20); BUN (Urea Nitrogen) 9 mg/dL (8.4-25.7); Calc. Creatinine Clearance 188 mL/min (70-130); Carbon Dioxide 25 mmol/L (23-31); Chloride 106 mmol/L (98-107); Estimated GFR 101; Glucose 98 mg/dL (80-115); Potassium 4.4 mmol/L (3.5-5.1); Sodium 140 mmol/L (136-145)
[2022-12-16] MEDS ORDERED: Lidocaine 1% (PF) 30 ML VIAL ONE (11:29)
[2022-12-16] MEDS ORDERED: EPINEPHrine 1 MG/ML AMP ONE (11:29)
[2022-12-16] MEDS ORDERED: fentaNYL PF 100 MCG/2 ML SYRINGE ONE (12:42)
[2022-12-16] MEDS ORDERED: SUGAMMADEX SODIUM 200 MG/2 ML VIAL ONE (12:42)
[2022-12-16] MEDS ORDERED: PROPOFOL 200 MG/20 ML VIAL ONE (12:50)
[2022-12-16] MEDS ORDERED: Albuterol HFA (OR) 200 PUFF INH ONE ×2 (12:50)
[2022-12-16] MEDS ORDERED: Glycopyrrolate 0.2 MG/ML 5 ML SYRINGE ONE (12:50)
[2022-12-16] MEDS ORDERED: NEOSTIGMINE 3 MG/3 ML SYR 3 MG/3 ML SYRINGE ONE (12:50)
[2022-12-16] MEDS ORDERED: Ondansetron PF 4 MG/2 ML Vial ONE (12:50)
[2022-12-16] MEDS ORDERED: Lidocaine 1% PF 5 ML VIAL ONE (12:50)
[2022-12-16] MEDS ORDERED: Dexamethasone 20 MG/5 ML VIAL ONE (12:50)
[2022-12-16] MEDS ORDERED: Rocuronium Bromide 10 MG/ML (10ML VIAL) ONE (12:50)
[2022-12-16] MEDS ORDERED: PHENYLEPHRINE-NS 100 MCG/ML 10 ML SYRINGE ONE (12:50)
[2022-12-16] MEDS ORDERED: Ipratropium/Albuterol 3 ML NEB ONE (13:36)
[2022-12-16] MEDS ORDERED: Fentanyl 100 MCG/2 ML VIAL ONE (13:51)
[2022-12-16] MEDS ORDERED: Dexamethasone 4 mg/ml Vial ONE (14:38)
[2022-12-16] MEDS ORDERED: HYDROcodone/Acetaminophen 5/325 mg Tablet ONE (16:40)
== END 2022-12-16 17:20 | disposition home or self-care (01) ==
LOC: SDC 08:52
PROVIDERS: ATTEND Specialist
PROC: 09B47ZZ Excision of Left External Auditory Canal, Via Natural or Artificial Opening (ICD-10-PCS; principal; 2022-12-16)
DX: L72.0 Epidermal cyst (principal); Z79.82 Long term (current) use of aspirin; Z79.899 Other long term (current) drug therapy
CPT/HCPCS: 80048; 85025; 88307; J0171; J1100; J2001; J2405; J2704; J3010; J7620

== ENCOUNTER 2024-06-20 23:31 | Inpatient (IN) | payer MEDICARE ==
[2024-06-20] MEDS ORDERED: Ipratropium Bromide 2.5 ml Neb ONE (23:45)
[2024-06-20] MEDS ORDERED: Albuterol 2.5 MG (0.5 mL) NEB ONE (23:45)
[2024-06-21 00:17] LABS: #Basophils 0.04 10x3/uL (0.0-0.2); %Basophils 0.2 % (0.0-1.0); %Eosinophils 0.2 % (0.0-10.0); %Lymphocytes 13.7 % (21.0-51.0); %Monocytes 3.5 % (0.0-10.0); %Neutrophils 81.9 % (42.0-75.0); Hematocrit 46.3 % (42.0-52.0); Hemoglobin 15.4 g/dL (14.0-18.0); Mean Corpuscular HGB CONC 33.3 g/dL (32.0-36.0); Mean Corpuscular Hemoglobin 31.6 pg (27.0-31.0); Mean Corpuscular Volume 95.1 fL (78.0-98.0); Mean Platelet Volume 9.5 fL (7.4-10.4); Platelet Count 198 10x3/uL (130-400); RBC Distribution Width 13.4 % (11.5-14.5); Red Blood Cell (RBC) Count 4.87 mill/uL (4.70-6.10)
[2024-06-21 00:35] LABS: ALT (SGPT) 14 U/L (8-55); AST (SGOT) 13 U/L (5-34); Albumin 3.7 g/dL (3.4-4.8); Alkaline Phosphatase 105 U/L (40-110); Anion Gap 15 mmol/L (10-20); BUN (Urea Nitrogen) 10 mg/dL (8.4-25.7); Bilirubin, Total 1.1 mg/dL (0.2-1.2); Calc. Creatinine Clearance 0 mL/min (70-130); Calcium 9.1 mg/dL (7.8-10.44); Carbon Dioxide 23 mmol/L (23-31); Chloride 104 mmol/L (98-107); Estimated GFR 100; Globulin 3.6 g/dL (2.4-3.5); Glucose 137 mg/dL (80-115); Magnesium 2.1 mg/dL (1.6-2.6); Potassium 4.3 mmol/L (3.5-5.1); Protein, Total 7.3 g/dL (5.8-8.1); Sodium 138 mmol/L (136-145)
[2024-06-21 00:38] LABS: Troponin I 0.036 ng/mL (< 0.028)
[2024-06-21 00:51] LABS: Influenza A by NAA Not Detected (NotDetected); Influenza B by NAA Not Detected (NotDetected); SARS-CoV-2 NAA Rapid Test Not Detected (NotDetected)
[2024-06-21] MEDS ORDERED: cefTRIAXone (ROCEPHIN) 500 MG VIAL ONE (02:29)
[2024-06-21] MEDS ORDERED: Albuterol 2.5 MG (3 mL) NEB NEB PRN (04:16)
[2024-06-21 05:18] LABS: #Basophils Less than 0.03 10x3/uL (0.0-0.2); #Eosinphils Less than 0.03 10x3/uL (0.0-0.7); %Basophils 0.1 % (0.0-1.0); %Eosinophils 0.1 % (0.0-10.0); %Lymphocytes 4.9 % (21.0-51.0); %Monocytes 1.4 % (0.0-10.0); %Neutrophils 92.8 % (42.0-75.0); Hematocrit 42.9 % (42.0-52.0); Hemoglobin 14.4 g/dL (14.0-18.0); Mean Corpuscular HGB CONC 33.6 g/dL (32.0-36.0); Mean Corpuscular Hemoglobin 31.7 pg (27.0-31.0); Mean Corpuscular Volume 94.5 fL (78.0-98.0); Mean Platelet Volume 9.8 fL (7.4-10.4); Platelet Count 164 10x3/uL (130-400); RBC Distribution Width 13.5 % (11.5-14.5); Red Blood Cell (RBC) Count 4.54 mill/uL (4.70-6.10)
[2024-06-21 05:54] LABS: Anion Gap 13 mmol/L (10-20); BUN (Urea Nitrogen) 12 mg/dL (8.4-25.7); Calc. Creatinine Clearance 169 mL/min (70-130); Calcium 8.9 mg/dL (7.8-10.44); Carbon Dioxide 24 mmol/L (23-31); Chloride 103 mmol/L (98-107); Estimated GFR 98; Glucose 184 mg/dL (80-115); Potassium 4.1 mmol/L (3.5-5.1); Sodium 136 mmol/L (136-145); Troponin I 0.178 ng/mL (< 0.028)
[2024-06-21 05:55] LABS: Troponin I 0.174 ng/mL (< 0.028)
[2024-06-21] MEDS: Nicotine 14 MG PATCH TD SCH (05:57)
[2024-06-21] MEDS: methylPREDNISolone Sod Succ 40 MG VIAL IVP SCH ×2 (05:58→11:43)
[2024-06-21 06:43] VITALS: BMI 38.9
[2024-06-21] MEDS: Ipratropium/Albuterol 3 ML NEB NEB SCH (07:52)
[2024-06-21 08:41] LABS: Troponin I 0.165 ng/mL (< 0.028)
[2024-06-21] MEDS ORDERED: Polyethylene Glycol 3350 17 GM Packet PO PRN (08:50)
[2024-06-21] MEDS ORDERED: Nicotine 14 MG PATCH TD PRN (08:54)
[2024-06-21] MEDS: Enoxaparin 40 MG (0.4 mL) SYRINGE SC SCH (09:02)
[2024-06-21] MEDS: Doxycycline 100 MG CAP PO SCH (09:03)
[2024-06-21] MEDS: Pantoprazole 40 MG VIAL IVP SCH (09:03)
[2024-06-21] MEDS: Aspirin 81 mg Enteric Coated Tablet PO SCH (09:12)
[2024-06-21] MEDS: Furosemide 40 MG (4 mL) VIAL SLOW IVP SCH (09:12)
[2024-06-21] MEDS: Flecainide 50 MG TAB PO SCH (09:12)
[2024-06-21] MEDS: Lisinopril 20 MG TAB PO SCH (09:13)
[2024-06-21] MEDS: dilTIAZem CD 240 MG CAP PO SCH (09:13)
[2024-06-21 11:24] LABS: Troponin I 0.158 ng/mL (< 0.028)
[2024-06-21 20:14] VITALS: TEMP 97.5
[2024-06-21] MEDS: Rosuvastatin 10 MG TAB PO SCH (20:52)
[2024-06-22] MEDS: cefTRIAXone\\ROCEPHIN 1 GM in Sodium Chloride 0.9% 100 ML IVPB SCH (00:29)
[2024-06-22 05:09] LABS: #Basophils Less than 0.03 10x3/uL (0.0-0.2); #Eosinphils Less than 0.03 10x3/uL (0.0-0.7); %Basophils 0.1 % (0.0-1.0); %Lymphocytes 4.4 % (21.0-51.0); %Monocytes 3.5 % (0.0-10.0); %Neutrophils 91.2 % (42.0-75.0); Hematocrit 41.3 % (42.0-52.0); Hemoglobin 13.6 g/dL (14.0-18.0); Mean Corpuscular HGB CONC 32.9 g/dL (32.0-36.0); Mean Corpuscular Volume 94.1 fL (78.0-98.0); Mean Platelet Volume 10.2 fL (7.4-10.4); Platelet Count 157 10x3/uL (130-400); RBC Distribution Width 13.5 % (11.5-14.5); Red Blood Cell (RBC) Count 4.39 mill/uL (4.70-6.10)
[2024-06-22 05:31] LABS: Anion Gap 12 mmol/L (10-20); BUN (Urea Nitrogen) 17 mg/dL (8.4-25.7); Calc. Creatinine Clearance 174 mL/min (70-130); Carbon Dioxide 26 mmol/L (23-31); Chloride 103 mmol/L (98-107); Estimated GFR 99; Glucose 147 mg/dL (80-115); Magnesium 1.9 mg/dL (1.6-2.6); Sodium 137 mmol/L (136-145)
[2024-06-22] MEDS: Pantoprazole DR 40 MG TAB PO SCH (09:00)
[2024-06-22 09:34] VITALS: BP 169/69
[2024-06-23] MEDS ORDERED: dilTIAZem CD 300 MG CAP PO SCH (09:00)
[2024-06-23] MEDS ORDERED: Sacubitril 49 MG/Valsartan 51 MG TABLET PO SCH (21:00)
== END 2024-06-22 14:00 | disposition home or self-care (01) | DRG 291 ==
LOC: ERS 23:31 → CCU 06-21 02:17 → 2NO 06-21 20:03
PROVIDERS: ADMIT Hospitalist; ATTEND Internal Medicine
DX: I11.0 Hypertensive heart disease with heart failure (principal); I50.33 Acute on chronic diastolic (congestive) heart failure; J18.9 Pneumonia, unspecified organism; J96.01 Acute respiratory failure with hypoxia; J44.1 Chronic obstructive pulmonary disease with (acute) exacerbation; I48.0 Paroxysmal atrial fibrillation; Z79.899 Other long term (current) drug therapy; M19.90 Unspecified osteoarthritis, unspecified site; Z98.890 Other specified postprocedural states; F17.210 Nicotine dependence, cigarettes, uncomplicated; E66.01 Morbid (severe) obesity due to excess calories; Z68.39 Body mass index [BMI] 39.0-39.9, adult; E78.5 Hyperlipidemia, unspecified
CPT/HCPCS: 36415; 71045; 80048; 80053; 83605; 83735; 83880; 84484; 85025; 87040; 93005; 94640; 94660; 94760; 96365; J0696; J1650; J1940; J2470; J2919; J7611; J7620; J7644

== ENCOUNTER 2024-07-26 06:04 | Day surgery (SDC) | payer MEDICARE ==
[2024-07-25 09:31] VITALS: BMI 37.7
[2024-07-26] MEDS ORDERED: Midazolam HCl 2 mg/2 ml Vial ONE (07:33)
[2024-07-26] MEDS ORDERED: Lidocaine 1% PF 5 ML VIAL ONE (07:44)
[2024-07-26] MEDS ORDERED: PROPOFOL 200 MG/20 ML VIAL ONE (07:44)
[2024-07-26] MEDS ORDERED: Iopamidol 370 76% 100 ML VIAL ONE (11:10)
== END 2024-07-26 08:48 | disposition home or self-care (01) ==
LOC: SDC 06:04
PROVIDERS: ATTEND Internal Medicine Cardiovascular Disease
PROC: 5A2204Z Restoration of Cardiac Rhythm, Single (ICD-10-PCS; principal; 2024-07-26)
DX: I48.19 Other persistent atrial fibrillation (principal); I48.4 Atypical atrial flutter; I11.0 Hypertensive heart disease with heart failure; I50.30 Unspecified diastolic (congestive) heart failure; J44.9 Chronic obstructive pulmonary disease, unspecified; M19.90 Unspecified osteoarthritis, unspecified site; E66.9 Obesity, unspecified; F17.200 Nicotine dependence, unspecified, uncomplicated; Z68.37 Body mass index [BMI] 37.0-37.9, adult; Z79.51 Long term (current) use of inhaled steroids; Z79.899 Other long term (current) drug therapy; Z79.01 Long term (current) use of anticoagulants; Z98.890 Other specified postprocedural states; Z95.818 Presence of other cardiac implants and grafts
CPT/HCPCS: 92960; J2250; J2704; Q9967

== ENCOUNTER 2024-08-15 13:04 | Outpatient (CLI) | payer MEDICARE ==
[2024-08-15 14:14] LABS: #Basophils 0.04 10x3/uL (0.0-0.2); %Basophils 0.4 % (0.0-1.0); %Eosinophils 0.8 % (0.0-10.0); %Lymphocytes 21.1 % (21.0-51.0); %Monocytes 7.2 % (0.0-10.0); %Neutrophils 70.2 % (42.0-75.0); Hematocrit 49.1 % (42.0-52.0); Hemoglobin 16.2 g/dL (14.0-18.0); Mean Corpuscular Hemoglobin 30.6 pg (27.0-31.0); Mean Corpuscular Volume 92.6 fL (78.0-98.0); Mean Platelet Volume 9.6 fL (7.4-10.4); Platelet Count 266 10x3/uL (130-400); RBC Distribution Width 13.5 % (11.5-14.5)
[2024-08-15 14:31] LABS: INR-International Normal Ratio 1.1; Prothrombin Time 13.7 sec (12.0-14.7)
[2024-08-15 14:32] LABS: PTT 32.8 sec (22.9-36.1)
[2024-08-15 14:33] LABS: ALT (SGPT) 12 U/L (8-55); AST (SGOT) 12 U/L (5-34); Albumin 3.7 g/dL (3.4-4.8); Alkaline Phosphatase 116 U/L (40-110); Anion Gap 13 mmol/L (10-20); BUN (Urea Nitrogen) 5 mg/dL (8.4-25.7); Bilirubin, Total 0.5 mg/dL (0.2-1.2); Calc. Creatinine Clearance 0 mL/min (70-130); Calcium 9.5 mg/dL (7.8-10.44); Carbon Dioxide 29 mmol/L (23-31); Chloride 100 mmol/L (98-107); Estimated GFR 92; Globulin 3.8 g/dL (2.4-3.5); Glucose 98 mg/dL (80-115); Potassium 4.1 mmol/L (3.5-5.1); Protein, Total 7.5 g/dL (5.8-8.1); Sodium 138 mmol/L (136-145)
[2024-08-17 12:18] LABS: Hemoglobin,Free - Plasma 1.2 mg/dL (0.0-4.9)
== END 2024-08-15 13:05 | disposition home or self-care (01) ==
LOC: LABBT 13:04
PROVIDERS: ATTEND Internal Medicine Cardiovascular Disease
DX: Z01.818 Encounter for other preprocedural examination (principal); I48.19 Other persistent atrial fibrillation
CPT/HCPCS: 80053; 83010; 83051; 83874; 85025; 85610; 85730; 86850; 86900; 86901; 93005; 93010

== ENCOUNTER 2025-09-17 07:29 | Day surgery (SDC) | payer MEDICARE ==
[2025-09-16 11:51] VITALS: BMI 37.7
== END 2025-09-17 09:45 | disposition home or self-care (01) ==
LOC: SDC 07:29
PROVIDERS: ATTEND Internal Medicine Cardiovascular Disease
PROC: 0JH Subcutaneous Tissue and Fascia, Insertion (ICD-10-PCS; principal; 2025-09-17)
DX: I48.19 Other persistent atrial fibrillation (principal); R55 Syncope and collapse; F17.200 Nicotine dependence, unspecified, uncomplicated
CPT/HCPCS: 33285; 33286; C1764